=== PATIENT | male | born 1950 | race Two or more races ===

== ENCOUNTER 2023-08-15 20:15 | Emergency (ER) | payer OTHER ==
[~2023-08-15] VITALS: Ht 167.6 cm; Wt 68.0 kg
[2023-08-15 20:39] VITALS: O2SAT 92
[2023-08-15] MEDS: SODIUM CHLORIDE 0.9% 1,000 ML IV ONE (20:59)
[2023-08-15 21:08] LABS: Hematocrit 35.7 % (41.0-53.0); Hemoglobin 12.1 g/dL (13.5-17.5); Mean Corpuscular Hemoglobin 34.8 pg (28.0-32.0); Mean Corpuscular Hgb Conc. 33.8 g/dL (32.0-36.0); Mean Corpuscular Volume 102.8 fL (80.0-100.0); Red Blood Cells 3.47 10^6/uL (4.5-5.90); Red Cell Distribution Width 13.5 % (11.8-14.3); White Blood Cell 24.1 10^3/uL (4.4-10.8)
[2023-08-15 21:10] LABS: Basophils % (manual) 0 (0.0-2.0); Blast Cells 0; Eosinophils % (manual) 0 (0-7); Metamyelocytes % 0; Myelocytes % 0; Promyelocytes % 0; Reactive Lymphocytes 0
[2023-08-15 21:14] LABS: Alanine Aminotransferase 25 U/L (7-40); Albumin 2.6 g/dL (3.2-4.8); Alkaline Phosphatase 94 U/L (46-116); Anion Gap 11 (5-15); Aspartate Aminotransferase 63 U/L (13-40); BUN/Creatinine Ratio 18.1 (10.0-20.0); Bilirubin, Total 2.5 mg/dL (0.2-1.0); Blood Urea Nitrogen 33 mg/dL (9-23); Calcium 8.8 mg/dL (8.5-10.1); Carbon Dioxide 21 mmol/L (20-30); Chloride 97 mmol/L (98-107); Glucose 123 mg/dL (74-106); Potassium 3.2 mmol/L (3.5-5.1); Sodium 129 mmol/L (136-145); Total Protein 5.4 g/dL (5.7-8.2)
[2023-08-15 21:55] LABS: Band Neutrophils % (manual) 12; Lymphocytes % (manual) 1 (10.0-50.0); Monocytes % (manual) 4 (0-12); Platelet Estimate Decreased
[2023-08-15 22:39] LABS: Lactic Acid w/Reflex 2.4 mmol/L (0.4-2.0)
[2023-08-15 22:43] LABS: INR 1.47 (0.9-1.15); Prothrombin Time 15.1 sec (9.3-11.8)
[2023-08-16] MEDS: cefTRIAXone 1GM/50ML D5W 50 ML IV ONE
[2023-08-16] MEDS: AZITHROMYCIN 250 MG TAB PO ONE
[2023-08-16 06:35] LABS: Urine Bacteria None Seen /hpf (None Seen)
[2023-08-16 06:56] LABS: Urine Blood 2+ /uL (Negative); Urine Clarity Clear (Clear); Urine Color Yellow (Yellow); Urine Protein, UAD TRACE (Negative); Urine Urobilinogen Normal (Negative); Urine WBC 3 /hpf (0 - 3); Urine pH 5.5 (5.0-9.0)
[2023-08-16 07:07] LABS: Amphetamine Screen, Urine Neg (NEGATIVE); Benzodiazephine Screen, Urine Neg (NEGATIVE)
[2023-08-16 07:08] LABS: Barbiturate Scree,Urine Neg (NEGATIVE); Cannabinoid Screen, Urine Pos (NEGATIVE); Cocaine Screen, Urine Neg (NEGATIVE); Opiate Scree,Urine Neg (NEGATIVE); Phencyclidine Screen, Urine Neg (NEGATIVE)
[2023-08-16 07:45] VITALS: PULSE 71; RESP 15; O2SAT 96
[2023-08-16 11:04] VITALS: BP 103/71; PULSE 68; RESP 17; TEMP 97.6; O2SAT 94
== END 2023-08-16 11:10 | disposition short-term general hospital (02) ==
LOC: EDBD 20:15 → ER 20:15
DX: I95.9 Hypotension, unspecified (principal); I25.9 Chronic ischemic heart disease, unspecified; R41.82 Altered mental status, unspecified; R79.89 Other specified abnormal findings of blood chemistry; N28.9 Disorder of kidney and ureter, unspecified; D72.829 Elevated white blood cell count, unspecified; K76.9 Liver disease, unspecified; E88.09 Other disorders of plasma-protein metabolism, not elsewhere classified; D69.6 Thrombocytopenia, unspecified; Z79.899 Other long term (current) drug therapy
CPT/HCPCS: 36415; 70450; 71045; 80053; 80307; 81001; 82140; 83605; 84484; 85007; 85027; 85610; 87040; 87077; 87186; 93005; 96361; 96365; 99285; J0696; J7030

== ENCOUNTER 2024-05-26 12:12 | Emergency (ER) | payer OTHER ==
[~2024-05-26] VITALS: Ht 167.6 cm; Wt 59.0 kg
--- NOTE | 2024-05-26 12:28 | ED.PDOC ---
HPI (NEURO) HPI Comments 73y M who presents to the ED via EMS for chief complaint of seizure. Per EMS, pt family states pt was in wheelchair and state he had tonic clonic seizure for approx 1 minute witnessed by family. Pt was laid on the ground and EMS was called to the scene. Per EMS, upon arrival pt in post-ictal and is [id number] to name only. Pt has no oral trauma or incontinence noted. Pt family states pt does have history of alcoholism and states pt did drink unknown amount last night. Pt in the ED, otherwise noted to be in post-ictal state and is not willing to answer any questions. Pt otherwise denies any other symptoms at this time. Chief Complaint: Seizure Time Seen by MD: 12:25 Reviewed Notes: Nurses Notes, Government Auditor Notes Information Source: Patient, Emergency Med Personnel Mode of Arrival: EMS Brought in by: EMS Severity: Moderate Dizziness/Weakness Severity: Does not affect activitie Headache Severity: None Timing: Minutes, Hours Duration: Since onset Prehospital treatment: None Onset: At rest Circumstances: Spontaneous Symptoms: Weakness Before: Normal During: Awake After: Confusion Modifying factors: Nothing Associated Signs and Symptoms: None Past Medical History PAST MEDICAL HISTORY: HTN, Liver, Thyroid Surgical History: Unobtainable Family History Family History: Unknown Social History Smoker: Non-Smoker Alcohol: Denies ETOH Use Drugs: Denies Drug Use Lives In: Home Constitutional: denies: chills, diaphoresis, fatigue, fever, malaise, sweats, weakness, others EENTM: denies: blurred vision, double vision, ear bleeding, ear discharge, ear drainage, ear pain, ear ringing, eye pain, eye redness, hearing loss, mouth pain, mouth swelling, nasal discharge, nose bleeding, nose congestion, nose pain, photophobia, tearing, throat pain, throat swelling, voice changes, others Respiratory: denies: cough, hemoptysis, orthopnea, SOB at rest, shortness of breath, SOB with excertion, stridor, wheezing, others Cardiovascular: denies: chest pain, dizzy spells, diaphoresis, Dyspnea on exertion, edema, irregular heart beat, left arm pain, lightheadedness, palpitations, PND, syncope, others Gastrointestinal: denies: abdomen distended, abdominal pain, blood streaked bowels, constipated, diarrhea, dysphagia, difficulty swallowing, hematemesis, melena, nausea, poor appetite, poor fluid intake, rectal bleeding, rectal pain, vomiting, others Genitourinary: denies: burning, dysuria, flank pain, frequency, hematuria, incontinence, penile discharge, penile sore, pain, testicle pain, testicle swelling, urgency, others Neurological: reports: seizure; denies: dizziness, fainting, headache, left sided numbness, left sided weakness, numbness, paresthesia, pre-existing deficit, right sided numbness, right sided weakness, speech problems, tingling, tremors, weakness, others Musculoskeletal: denies: back pain, gout, joint pain, joint swelling, muscle pain, muscle stiffness, neck pain, others Integumetry: denies: bruises, change in color, change in hair/nails, dryness, laceration, lesions, lumps, rash, wounds, others Allergic/Immunocompromised: denies: Difficulty Healing, Frequent Infections, Hives, Itching, others Hematologic/Lymphatic: denies: anemia, blood clots, easy bleeding, easy bruising, swollen glands, others Endocrine: denies: excessive hunger, excessive sweating, excessive thirst, excessive urination, flushing, intolerance to cold, intolerance to heat, unexplained weight gain, unexplained weight loss, others Psychiatric: denies: anxiety, bipolar disorder, depression, hopeless, panic disorder, schizophrenia, sleepless, suicidal, others All Other Systems: Reviewed and Negative Physical Exam General Appearance: No Apparent Distress HEENT: Normal ENT Inspection, Pharynx Normal, TMs Normal Neck: Full Range of Motion, Non-Tender, Normal, Normal Inspection Respiratory: Chest Non-Tender, Lungs Clear, No Accessory Muscle Use, No Respiratory Distress, Normal Breath Sounds Cardiovascular: No Edema, No JVD, No Murmur, No Gallop, Normal Peripheral Pulses, Regular Rate/Rhythm Breast Exam: Deferred Gastrointestinal: No Organomegaly, Non Tender, No Pulsatile Mass, Normal Bowel Sounds, Soft Genitalia: Deferred Pelvic: Deferred Rectal: Deferred Extremities: No calf tenderness, Normal capillary refill, Normal inspection, Normal range of motion, Non-tender, No pedal edema Musculoskeletal : Apperance: Normal Neurologic: Alert, commercial loan manager II-XII nml as Tested, Motor Weakness, Normal Affect, No Sensory Deficits, Other (The patient was somewhat postictal) Cerebellar Function: Normal Reflexes: Normal Skin: Dry, Normal Color, Warm Lymphatic: No Adenopathy EKG EKG : Pulse Rate (adult): 65 [place]: Normal Cardiac Rhythm: NSR Block: None Hypertrophy: None ST: Normal Comments low voltage Was a procedure done? Was a procedure done?: No Differential Diagnosis (SZ) Seizure: Psychogenic Seizure, Alcohol Withdrawl, Drug Ingestion, Hypocalcemia, Hypoglycemia, Hyponatremia, Hypoxemia, Idiopathic, Encephalopathy, Other X-Ray, Labs, Meds, VS Vital Signs Date Time Temp Pulse Resp B/P (MAP) Pulse Ox O2 Delivery O2 Flow Rate FiO2 05/26/24 13:10 65 05/26/24 12:51 65 05/26/24 12:40 67 18 93 Room Air* 0 21 05/26/24 12:34 98.0 67 18 131/83 (99) 97 98.0 05/26/24 12:22 98.0 72 16 129/76 (93) 95 Lab Test 05/26/24 14:14 05/26/24 12:38 Range/Units Urine Opiates Screen Neg NEGATIVE Urine Fentanyl Screen Neg NEGATIVE Urine Barbiturates Screen Neg NEGATIVE Urine Phencyclidine Screen Neg NEGATIVE Urine Amphetamines Screen Neg NEGATIVE Urine Benzodiazepines Screen Neg NEGATIVE Urine Cocaine Screen Neg NEGATIVE Urine Cannabinoids Screen Pos NEGATIVE White Blood Count 5.6 4.4-10.8 10^3/uL Red Blood Count 3.90 L 4.5-5.90 10^6/uL Hemoglobin 13.5 13.5-17.5 g/dL Hematocrit 40.7 L 41.0-53.0 % Mean Corpuscular Volume 104.3 H 80.0-100.0 fL Mean Corpuscular Hemoglobin 34.5 H 28.0-32.0 pg Mean Corpuscular Hemoglobin Concent 33.1 32.0-36.0 g/dL Red Cell Distribution Width 16.0 H 11.8-14.3 % Platelet Count 65 L 140-450 10^3/uL Mean Platelet Volume 7.4 6.9-10.8 fL Neutrophils (%) (Auto) 67.4 37.0-80.0 % Lymphocytes (%) (Auto) 22.5 10.0-50.0 % Monocytes (%) (Auto) 9.0 0.0-12.0 % Eosinophils (%) (Auto) 0.7 0.0-7.0 % Basophils (%) (Auto) 0.4 0.0-2.0 % Neutrophils # (Auto) 3.7 1.6-8.6 10 ^3/uL Lymphocytes # (Auto) 1.2 0.4-5.4 10 ^3/uL Monocytes # (Auto) 0.5 0-1.3 10 ^3/uL Eosinophils # (Auto) 0 0-0.8 10 ^3/uL Basophils # (Auto) 0 0-0.2 10 ^3/uL Nucleated Red Blood Cells 0.2 % Sodium Level 134 L 136-145 mmol/L Potassium Level 3.1 L 3.5-5.1 mmol/L Chloride Level 99 98-107 mmol/L Carbon Dioxide Level 26 20-31 mmol/L Anion Gap 9 5-15 Blood Urea Nitrogen 6 L 9-23 mg/dL Creatinine 1.10 0.700-1.30 mg/dL Glomerular Filtration Rate Calc 71 >90 mL/min BUN/Creatinine Ratio 5.5 L 10.0-20.0 Serum Glucose 133 H 74-106 mg/dL Calcium Level 10.0 8.7-10.4 mg/dL Plasma/Serum Blood Alcohol 3.2 <10 mg/dL EXAM: CT HEAD WITHOUT CONTRAST IMPRESSION: 1. No acute intracranial process. CT scan of the head is negative The CBC and chemistry panel are within normal limits The urine tox is positive for marijuana The patient was also been drinking alcohol and most likely is withdrawing The patient was now back to baseline The patient's son and are here and they confirmed that he was at baseline The patient will be discharged and will follow up with the primary care doctor The patient understands and agrees with the management Images Reviewed?: Images reviewed and evaluated by me Time of 1ST Reevaluation: 13:25 Reevaluation 1ST: Unchanged Patient Education/Counseling: Diagnosis, Treatment, Prognosis, Need For Follow Up Family Education/Counseling: Diagnosis, Treatment, Prognosis, Need For Follow Up Additional Information - I reviewed the following notes from patient's past medical encounters: - The following tests were ordered, and results were reviewed by me: (Labs, X- Ray, EKG): bmp, ct head w/o contrast, drug screen, blood alcohol, cbc, - Additional information was gathered from interviewing the following independent Historian: (Family, Other Providers, EMT): EMS - I reviewed and agreed with the following test results read by other provider: radiologist - I discussed treatments and results with medical personnel and: (consultants, family): none Departure 1 Departure Time of Disposition: 15:10 Impression: Primary Impression: Alcohol withdrawal seizure Qualified Codes: F10.930 - Alcohol use, unspecified with withdrawal, u ncomplicated; R56.9 - Unspecified convulsions Disposition: 01 HOME / SELF CARE / HOMELESS Condition: Fair Discharged With: Self, Relative (Mother) Critical Care Note Critical Care Time?: No Stability Stability form required: No Heart Score Heart Score: Heart Score Response (Comments) Value History N/A 0 EKG N/A 0 Age N/A 0 Risk Factors N/A 0 Troponin N/A 0 Total 0 I personally scribed for JEANETTE MEJIA MD ([email or web address]) on 05/26/24 at 12:28. Electronically submitted by Jone Argueta ([email or web address] I personally scribed for JEANETTE MEJIA MD ([email or web address]) on 05/26/24 at 13:10. Electronically submitted by Jone Argueta ([facility] I personally scribed for JEANETTE MEJIA MD ([email or web address]) on 05/26/24 at 13:34. Electronically submitted by Jone Argueta ([facility] JEANETTE MEJIA MD May 26, 2024 12:28
[2024-05-26 12:34] VITALS: TEMP 98
[2024-05-26 12:40] VITALS: PULSE 67; RESP 18; O2SAT 93
[2024-05-26 13:00] VITALS: BP 126/82; RESP 15; O2SAT 94
[2024-05-26 13:10] VITALS: PULSE 65
--- NOTE | 2024-05-26 13:16 | DVH ---
EXAM: CT HEAD WITHOUT CONTRAST HISTORY: seizure COMPARISON: CT HEAD WITHOUT CONTRAST on DOS: 08/16/23, CT HEAD WITHOUT CONTRAST on DOS: 08/15/23 TECHNIQUE: Axial images of the head were obtained and reformatted in coronal and sagittal planes. All CT scans at this medical facility are performed using dose modulation techniques as appropriate t o a performed exam including the following: Automated exposure control was utilized; adjustment of th e MA and/or KV according to patient size; and use of iterative reconstruction technique. CT Dose: CTDI volume is 54.34 mGy. Dose-length product is 962.34 mGy*cm FINDINGS: There is moderate generalized parenchymal volume loss. There is no evidence of acute intracranial hem orrhage, mass, mass effect midline shift. There is no hydrocephalus or extra-axial fluid collection. Taylor-white matter differentiation appears maintained. There is mucosal thickening with hyperdense inspissated secretions in the left maxillary sinus. The mastoid air cells are clear. The calvarium is intact. IMPRESSION: 1. No acute intracranial process. HS:Y
--- NOTE | 2024-05-26 13:17 | ECG ---
[facility] Test Date: 2024-05-26 Test Time: 12:51:33 Pat Name: LEN LIN Department: ER Room: Gender: M Printer Technician: GP : 1950 Requested By: JEANETTE MEJIA Order Number: [id number] Reading MD: Kevin Sutherland Measurements Intervals Naoma Rate: 65 P: 32 KS: 167 QRS: 42 QRSD: 106 T: 38 QT: 479 QTc: 499 Interpretive Statements Sinus rhythm Low voltage, precordial leads Borderline prolonged QT interval Baseline wander in lead(s) II,III,aVF Electronically Signed On 05-27-2024 12:00:13 PST by Kevin Sutherland Please click the below link to view image of tracing.
[2024-05-26 13:18] LABS: Basophils # (auto) 0 10 ^3/uL (0-0.2); Basophils % (auto) 0.4 % (0.0-2.0); Eosinophils # (auto) 0 10 ^3/uL (0-0.8); Eosinophils % (auto) 0.7 % (0.0-7.0); Hematocrit 40.7 % (41.0-53.0); Hemoglobin 13.5 g/dL (13.5-17.5); Lymphocytes # (auto) 1.2 10 ^3/uL (0.4-5.4); Lymphocytes % (auto) 22.5 % (10.0-50.0); Mean Corpuscular Hemoglobin 34.5 pg (28.0-32.0); Mean Corpuscular Hgb Conc. 33.1 g/dL (32.0-36.0); Mean Corpuscular Volume 104.3 fL (80.0-100.0); Monocytes # (auto) 0.5 10 ^3/uL (0-1.3); Neutrophils # (auto) 3.7 10 ^3/uL (1.6-8.6); Neutrophils % (auto) 67.4 % (37.0-80.0); Nucleated Red Blood Cells % 0.2 %; Platelet Count (auto) 65 10^3/uL (140-450); White Blood Cell 5.6 10^3/uL (4.4-10.8)
[2024-05-26 13:43] LABS: Chloride 99 mmol/L (98-107)
[2024-05-26 13:44] LABS: Anion Gap 9 (5-15); Carbon Dioxide 26 mmol/L (20-31)
[2024-05-26 13:49] LABS: BUN/Creatinine Ratio 5.5 (10.0-20.0); Blood Alcohol 3.2 mg/dL (<10)
[2024-05-26 13:50] LABS: Blood Urea Nitrogen 6 mg/dL (9-23); Glucose 133 mg/dL (74-106); Potassium 3.1 mmol/L (3.5-5.1); Sodium 134 mmol/L (136-145)
[2024-05-26 14:40] LABS: Barbiturate Scree,Urine Neg (NEGATIVE); Opiate Scree,Urine Neg (NEGATIVE)
[2024-05-26 14:41] LABS: Amphetamine Screen, Urine Neg (NEGATIVE); Benzodiazephine Screen, Urine Neg (NEGATIVE); Cannabinoid Screen, Urine Pos (NEGATIVE); Cocaine Screen, Urine Neg (NEGATIVE); Phencyclidine Screen, Urine Neg (NEGATIVE)
== END 2024-05-26 15:18 | disposition home or self-care (01) ==
LOC: EDBD 12:12 → ER 12:19
DX: R56.9 Unspecified convulsions (principal); F10.239 Alcohol dependence with withdrawal, unspecified; Y90.9 Presence of alcohol in blood, level not specified; I10 Essential (primary) hypertension; E07.9 Disorder of thyroid, unspecified
CPT/HCPCS: 36415; 70450; 80048; 80307; 80320; 85025; 93005

== ENCOUNTER 2024-05-26 19:38 | Inpatient (IN) | payer OTHER ==
[~2024-05-26] VITALS: Ht 172.7 cm; Wt 61.5 kg
--- NOTE | 2024-05-26 19:46 | ED.PDOC ---
HPI (NEURO) HPI Comments 73y M who presents to the ED via EMS for chief complaint of seizure. Pt was at [facility] earlier this AM for tonic clonic seizure like activity witnessed by family while sitting on wheelchair and EMS was called to the scene. Pt was discharged after all vitals came negative and EMS states pt had another seizure similar like earlier this AM, tonic clonic seizure lasting approx 1 minute. Pt in the ED, in post-ictal state with no associated oral trauma or incontinence noted. Time Seen by MD: 19:44 Reviewed Notes: Manager Books Notes Information Source: Emergency Med Personnel Mode of Arrival: EMS Brought in by: EMS Severity: Moderate Dizziness/Weakness Severity: Does not affect activitie Headache Severity: Moderate Timing: Minutes, Hours Duration: Since onset Prehospital treatment: None Seizure Quality: Tonic-clonic Seizure Location: Generalized Onset: At rest Circumstances: Spontaneous Symptoms: None Before: Normal During: Awake After: Confusion History of: Hypertension Modifying factors: Nothing Associated Signs and Symptoms: None Past Medical History PAST MEDICAL HISTORY: HTN, Liver, Thyroid Surgical History: Unobtainable Family History Family History: Unknown Social History Smoker: Non-Smoker Alcohol: Denies ETOH Use Drugs: Denies Drug Use Lives In: Home Constitutional: denies: chills, diaphoresis, fatigue, fever, malaise, sweats, weakness, others EENTM: denies: blurred vision, double vision, ear bleeding, ear discharge, ear drainage, ear pain, ear ringing, eye pain, eye redness, hearing loss, mouth pain, mouth swelling, nasal discharge, nose bleeding, nose congestion, nose pain, photophobia, tearing, throat pain, throat swelling, voice changes, others Respiratory: denies: cough, hemoptysis, orthopnea, SOB at rest, shortness of breath, SOB with excertion, stridor, wheezing, others Cardiovascular: denies: chest pain, dizzy spells, diaphoresis, Dyspnea on exertion, edema, irregular heart beat, left arm pain, lightheadedness, palpitations, PND, syncope, others Gastrointestinal: denies: abdomen distended, abdominal pain, blood streaked bowels, constipated, diarrhea, dysphagia, difficulty swallowing, hematemesis, melena, nausea, poor appetite, poor fluid intake, rectal bleeding, rectal pain, vomiting, others Genitourinary: denies: burning, dysuria, flank pain, frequency, hematuria, incontinence, penile discharge, penile sore, pain, testicle pain, testicle swelling, urgency, others Neurological: reports: seizure; denies: dizziness, fainting, headache, left sided numbness, left sided weakness, numbness, paresthesia, pre-existing deficit, right sided numbness, right sided weakness, speech problems, tingling, tremors, weakness, others Musculoskeletal: denies: back pain, gout, joint pain, joint swelling, muscle pain, muscle stiffness, neck pain, others Integumetry: denies: bruises, change in color, change in hair/nails, dryness, laceration, lesions, lumps, rash, wounds, others Allergic/Immunocompromised: denies: Difficulty Healing, Frequent Infections, Hives, Itching, others Hematologic/Lymphatic: denies: anemia, blood clots, easy bleeding, easy bruising, swollen glands, others Endocrine: denies: excessive hunger, excessive sweating, excessive thirst, excessive urination, flushing, intolerance to cold, intolerance to heat, unexplained weight gain, unexplained weight loss, others Psychiatric: denies: anxiety, bipolar disorder, depression, hopeless, panic disorder, schizophrenia, sleepless, suicidal, others All Other Systems: Reviewed and Negative Physical Exam General Appearance: Moderate Distress HEENT: Normal ENT Inspection, Pharynx Normal, TMs Normal Neck: Full Range of Motion, Non-Tender, Normal, Normal Inspection Respiratory: Chest Non-Tender, Lungs Clear, No Accessory Muscle Use, No Respiratory Distress, Normal Breath Sounds Cardiovascular: No Edema, No JVD, No Murmur, No Gallop, Normal Peripheral Pulses, Regular Rate/Rhythm Breast Exam: Deferred Gastrointestinal: No Organomegaly, Non Tender, No Pulsatile Mass, Normal Bowel Sounds, Soft Genitalia: Deferred Pelvic: Deferred Rectal: Deferred Extremities: No calf tenderness, Normal capillary refill, Normal inspection, Normal range of motion, Non-tender, No pedal edema Musculoskeletal : Apperance: Normal Neurologic: Alert, environmental sustainability manager II-XII nml as Tested, Motor Weakness, No Motor Deficits, No Sensory Deficits, Other (The patient was postictal) Cerebellar Function: Normal Reflexes: Normal Skin: Dry, Normal Color, Warm Lymphatic: No Adenopathy Was a procedure done? Was a procedure done?: No Differential Diagnosis (SZ) Seizure: Psychogenic Seizure, Alcohol Withdrawl, Anticonvulsant Withdrawl, Closed Head Injury, CVA/TIA, Drug Ingestion, Hypocalcemia, Hypoglycemia, Idiopathic X-Ray, Labs, Meds, VS At this time, the patient had an IV Hep-Lock placed Seizure precautions were placed At this time the patient will be admitted to the hospitalist A neurology consult will be obtained. At this time, the patient will be admitted Time of 1ST Reevaluation: 18:15 Reevaluation 1ST: Unchanged Patient Education/Counseling: Diagnosis, Treatment, Prognosis Family Education/Counseling: No Family Present Departure 1 Departure Time of Disposition: 20:06 Impression: Primary Impression: Alcohol withdrawal seizure Qualified Codes: F10.930 - Alcohol use, unspecified with withdrawal, uncomplicated; R56.9 - Unspecified convulsions Disposition: ADMITTED INPATIENT Admit to: Tele Condition: Fair Critical Care Note Critical Care Time?: No Stability Stability form required: Yes Unstable for transfer: Telemetry monitoring (Telemetry monitoring required), ED Physician Assesment (Clinical assesment) Heart Score Heart Score: Heart Score Response (Comments) Value History N/A 0 EKG N/A 0 Age N/A 0 Risk Factors N/A 0 Troponin N/A 0 Total 0 I personally scribed for JEANETTE MEJIA MD ([email or web address]) on 05/26/24 at 19:46. Electronically submitted by Jone Argueta ([email or web address]). JEANETTE MEJIA MD May 26, 2024 19:46
[2024-05-26] MEDS: LORazepam 2MG/ML-1ML VIAL IV ONE (21:06)
[2024-05-26] MEDS ORDERED: MORPHINE SULFATE INJ 2 MG/ml SYRG IV PRN ×2 (21:15)
[2024-05-26] MEDS ORDERED: NITROGLYCERIN 0.4 MG SL TAB SL PRN (21:15)
[2024-05-26] MEDS ORDERED: LORazepam 2MG/ML-1ML VIAL IV PRN (21:15)
[2024-05-26 21:49] LABS: Basophils # (auto) 0 10 ^3/uL (0-0.2); Basophils % (auto) 0.2 % (0.0-2.0); Eosinophils # (auto) 0 10 ^3/uL (0-0.8); Hematocrit 38.7 % (41.0-53.0); Hemoglobin 13.1 g/dL (13.5-17.5); Lymphocytes # (auto) 0.9 10 ^3/uL (0.4-5.4); Lymphocytes % (auto) 5.7 % (10.0-50.0); Mean Corpuscular Hemoglobin 35.7 pg (28.0-32.0); Mean Corpuscular Hgb Conc. 33.9 g/dL (32.0-36.0); Mean Corpuscular Volume 105.4 fL (80.0-100.0); Monocytes # (auto) 0.6 10 ^3/uL (0-1.3); Neutrophils # (auto) 13.8 10 ^3/uL (1.6-8.6); Neutrophils % (auto) 90.1 % (37.0-80.0); Red Blood Cells 3.67 10^6/uL (4.5-5.90); Red Cell Distribution Width 16.2 % (11.8-14.3); White Blood Cell 15.4 10^3/uL (4.4-10.8)
[2024-05-26 22:03] LABS: Alanine Aminotransferase 16 U/L (7-40); Albumin 3.6 g/dL (3.2-4.8); Anion Gap 20 (5-15); BUN/Creatinine Ratio 8.5 (10.0-20.0); Blood Alcohol 3.2 mg/dL (<10); Blood Urea Nitrogen 11 mg/dL (9-23); Calcium 10.1 mg/dL (8.7-10.4); Chloride 98 mmol/L (98-107); Magnesium 1.8 mg/dL (1.6-2.6); Potassium 3.7 mmol/L (3.5-5.1)
[2024-05-26 22:04] LABS: Total Protein 6.9 g/dL (5.7-8.2)
[2024-05-26 22:06] LABS: Alkaline Phosphatase 204 U/L (46-116); Aspartate Aminotransferase 47 U/L (13-40); Bilirubin, Total 2.9 mg/dL (0.2-1.0); Carbon Dioxide 16 mmol/L (20-31); Glucose 166 mg/dL (74-106); Platelet Count (auto) 90 10^3/uL (140-450); Sodium 134 mmol/L (136-145)
--- NOTE | 2024-05-26 22:11 | DVHHPRES ---
History of Present Illness Resident Creating Document: DEVANTE WESLEY RESIDENT History of Present Illness LEN LIN is a 73-year-old male with a PMH of HTN, liver disease, thyroid disease presented to the ED via EMS with a chief complaints of seizure. Today morning patient visited ED for seizure activity witnessed by the family, later discharged again patient develops seizure-like episodes which last for 1 minute, again visited to ED. Patient is poor historian, altered. Unable to obtain complete history. Reports from ED records saying family mentioned that he drinks alcohol and takes marijuana every day and last drink was couple of days back, no history of seizure disorder. Unable to contact family due to lack of contact information. PMH: HTN, liver disease, thyroid disease PSH: Unable to obtain Family history: Unable do obtain Social history: Unable to obtain Allergies: Unable to obtain Home medications: Unable to obtain Review of Systems Review of Systems Patient seen and examined at the bedside. Unable to obtain ROS due to patient's clinical status. Patient is altered, unable to answer the questions. Head CT showed no acute changes but CXR showing findings suggestive of atypical infection, given 1 dose of Rocephin and Zithromax. Allergies: Coded Allergies: No Known Drug Allergy (Verified Allergy, Unknown, 05/26/24) Medications Current Medications Medications Dose Ordered Sig/Gita Route Start Time Stop Time Status Last Admin Dose Admin Sodium Chloride 1,000 ml @ 60 mls/hr [id number] IV 05/26/24 21:15 Enoxaparin Sodium 40 mg DAILY SC 05/27/24 10:00 UNV Acetaminophen 650 mg Q6HP PRN PO 05/26/24 21:15 Morphine Sulfate 2 mg Q4HPRN PRN IV 05/26/24 21:15 Nitroglycerin 0.4 mg Q5MINP PRN SL 05/26/24 21:15 Morphine Sulfate 2 mg Q30M PRN IV 05/26/24 21:15 Lorazepam 1 mg Q5MINP PRN IV 05/26/24 21:15 Exam Vital Signs Vital Signs Date Time Temp Pulse Resp B/P (MAP) Pulse Ox O2 Delivery O2 Flow Rate FiO2 05/26/24 19:49 98.7 88 18 128/67 (87) 98 Exam Pt is lying on bed, unable to do due to patient clinical status General Appearance: Altered, poorly responsive, moderately distress HEENT: Atraumatic, Mucous membranes dry Respiratory: Clear to auscultation, Normal air movement, Cardiovascular: Regular rate, Normal S1, Normal S2, Abdominal: Active bowel sounds, Soft, no tenderness Extremities: No edema, Normal pulses, No tenderness/swelling Skin: No Significant rash, except past surgical scars Neuro: Poorly responsive, altered Nurse was there as sharperone during examination Labs/Xrays Labs Test 05/26/24 21:24 Range/Units White Blood Count 15.4 #H 4.4-10.8 10^3/uL Red Blood Count 3.67 L 4.5-5.90 10^6/uL Hemoglobin 13.1 L 13.5-17.5 g/dL Hematocrit 38.7 L 41.0-53.0 % Mean Corpuscular Volume 105.4 H 80.0-100.0 fL Mean Corpuscular Hemoglobin 35.7 H 28.0-32.0 pg Mean Corpuscular Hemoglobin Concent 33.9 32.0-36.0 g/dL Red Cell Distribution Width 16.2 H 11.8-14.3 % Platelet Count 90 L 140-450 10^3/uL Mean Platelet Volume 6.8 L 6.9-10.8 fL Neutrophils (%) (Auto) 90.1 H 37.0-80.0 % Lymphocytes (%) (Auto) 5.7 L 10.0-50.0 % Monocytes (%) (Auto) 4.0 0.0-12.0 % Eosinophils (%) (Auto) 0.0 0.0-7.0 % Basophils (%) (Auto) 0.2 0.0-2.0 % Neutrophils # (Auto) 13.8 H 1.6-8.6 10 ^3/uL Lymphocytes # (Auto) 0.9 0.4-5.4 10 ^3/uL Monocytes # (Auto) 0.6 0-1.3 10 ^3/uL Eosinophils # (Auto) 0 0-0.8 10 ^3/uL Basophils # (Auto) 0 0-0.2 10 ^3/uL Nucleated Red Blood Cells 0.0 % Sodium Level 134 L 136-145 mmol/L Potassium Level 3.7 3.5-5.1 mmol/L Chloride Level 98 98-107 mmol/L Carbon Dioxide Level 16 #L 20-31 mmol/L Anion Gap 20 H 5-15 Blood Urea Nitrogen 11 9-23 mg/dL Creatinine 1.30 0.700-1.30 mg/dL Glomerular Filtration Rate Calc 58 >90 mL/min BUN/Creatinine Ratio 8.5 L 10.0-20.0 Serum Glucose 166 H 74-106 mg/dL Calcium Level 10.1 8.7-10.4 mg/dL Magnesium Level 1.8 1.6-2.6 mg/dL Total Bilirubin 2.9 H 0.2-1.0 mg/dL Aspartate Amino Transferase (AST) 47 H 13-40 U/L Alanine Aminotransferase (ALT) 16 7-40 U/L Alkaline Phosphatase 204 H 46-116 U/L Ammonia 65 H 11-32 umol/L Troponin I High Sensitivity 8 </=54 ng/L Total Protein 6.9 5.7-8.2 g/dL Albumin 3.6 3.2-4.8 g/dL Plasma/Serum Blood Alcohol 3.2 <10 mg/dL Assessment/Plan Assessment/Plan # Acute metabolic/toxic encephalopathy likely due to below # Seizure likely from alcohol withdrawal # Generalized tonic-clonic seizures -seizure precautions -Ativan p.r.n. -monitor continuously -consider neurology evaluation if needed -CT head showed no acute changes -started Keppra 500 b.i.d. -neurology on board -started thiamine and folic acid # SIRS VS sepsis -monitor lab -ordered pancultures -intially on Rocephin and Zithromax then switched to Zosyn # ? Aspiration pneumonia -pending CXR -intially on Rocephin and Zithromax then switched to Zosyn # dehydration -receiving fluids # Anion gap metaboloc acidosis likely due to lactate/seizure -monitor lab # alcohol withdrawal # alcohol dependence disorder # macrocytic anemia -monitor lab for now # thrombocytopenia likely from alcohol -monitor lab # mild transaminitis likely from liver disease -monitor for now Protonix NPO SCDs Unable to discuss goals of care for now but per EMR full code Case discussed with Dr. Elena, nurse Plan discussed with: Other (RN) My Orders Orders - DEVANTE WESLEY RESIDENT Procedure Category Date Status Time Admit ADMIT 05/26/24 Transmitted 21:15 Allergies KISHAN 05/26/24 In Process 21:15 Code Status CODE 05/26/24 Transmitted 21:15 Sodium Chloride 0.9% PHA 05/26/24 In Process 21:15 Enoxaparin Sodium PHA 05/27/24 Pending (Lovenox) 10:00 Complete Blood Count LAB 05/27/24 Verified 04:00 Comprehensive LAB 05/27/24 Verified Metabolic Panel 04:00 Npo (Nothing By DIET 05/27/24 Transmitted Mouth) Diet Breakfast Condition: Stable KISHAN 05/26/24 In Process 21:15 Acetaminophen Tablet PHA 05/26/24 In Process (Tylenol Tablet) 21:15 Morphine Sulfate PHA 05/26/24 In Process Injection 21:15 Nitroglycerin PHA 05/26/24 In Process Sublingual (Ntrostat 21:15 Morphine Sulfate PHA 05/26/24 In Process Injection 21:15 Oxygen By Nasal RT 05/26/24 Transmitted Cannula 21:15 Stat Ekg For Chest KISHAN 05/26/24 In Process Pain 21:15 Notify Md Of Changes KISHAN 05/26/24 In Process From Base 21:15 Meter Record Clerk For KISHAN 05/26/24 In Process 24 Hours 21:15 Emergency Dysrhythmia KISHAN 05/26/24 In Process Protocol 21:15 Rhythm Strips Once KISHAN 05/26/24 In Process Every Shift 21:15 Lorazepam 2mg/Ml Inj PHA 05/26/24 In Process (Ativan Inj) 21:15 Thyroid Stimulating LAB 05/26/24 In Process Hormone 21:19 Rapid Influenza A&B LAB 05/26/24 Logged 21:21 Covid19 Antigen Ina LAB 05/26/24 Logged D-Dimer LAB 05/26/24 In Process 21:23 Azithromycin 500mg/ PHA 05/26/24 In Process 250ml (Zithromax 50 21:30 Seizure Precautions ED NURSING 05/26/24 Transmitted Date of Service: May 26, 2024 Billing Provider: SHANAE ELENA MD Common Visit Codes: [id number] INP/OBS CARE (HIGH) DEVANTE WESLEY RESIDENT May 26, 2024 22:11 SHANAE ELENA MD May 28, 2024 00:34
[2024-05-26 22:38] LABS: Lactic Acid w/Reflex 8.5 mmol/L (0.4-2.0)
[2024-05-27] MEDS: FOLIC ACID 1 MG in D5W 5% 50 ML INJ SCH (00:15)
[2024-05-27] MEDS: LIDOCAINE 1% HCL (LOCAL ANESTH.) INJ 20ML MDV ONE (01:00)
[2024-05-27] MEDS: IOHEXOL 350 MG/ML 100ML IJ ONE (01:07)
--- NOTE | 2024-05-27 01:16 | DVH ---
EXAM: XY CHEST XRAY 1 VIEW CLINICAL HISTORY: poss asp pneumonia TECHNIQUE: Single AP view of the chest WID: COMPARISON: XY CHEST PORTABLE on DOS: 08/15/23 FINDINGS: Lines and tubes: None Chest: The heart size and pulmonary vasculature is within normal limits. Calcified plaque projects over the aortic arch. Blunting of the right costophrenic angle. Hazy opacification of the right lung base. No pneumothorax. The osseous structures are grossly intact. IMPRESSION: Blunting of the right costophrenic angle which could reflect pleural effusions ; hazy opacification o f the right lung base which could reflect layering pleural fluid , atelectasis or pneumonia.
[2024-05-27 01:19] VITALS: RESP 23; O2SAT 95
--- NOTE | 2024-05-27 01:36 | DVH ---
INDICATION: fall EXAM DATE: 05/27/2024 01:06 AM COMPARISON: CT head obtained earlier today TECHNIQUE: CT of the orbits without intravenous contrast. RADIATION DOSE: CTDIvol: 67 mGy, DLP: 810 mGy*cm FINDINGS: The orbits, globes and extraocular muscles appear intact. There is no evidence of acute fracture. Th e visualized brain is unremarkable. The surrounding soft tissues and osseous structures are otherwis e unremarkable. Mucosal thickening of the left maxillary sinus with hyperdense inspissated secretions. Minimal mucos al thickening of the right maxillary sinus. IMPRESSION: 1. CT orbits within normal limits. 2. Left maxillary sinusitis.
--- NOTE | 2024-05-27 01:41 | DVH ---
EXAM: CT HEAD WITHOUT CONTRAST INDICATION: fall TECHNIQUE: CT of the head without intravenous contrast. Radiation Dose : 1. Head: CT Dose: CTDI volume is 56 can not be mGy. Dose-length product is 1108 mGy*cm The dose indicators for CT are the volume Computed Tomography (CT) Dose Index (CTDIvol) and the Dose Length Product (DLP), and are measured in units of mGy and mGy-cm, respectively. These indicators are not patient dose, but values generated from the CT scanner acquisition factors. The report includes radiation exposure data for exposures received during this examination. COMPARISON: CT HEAD WITHOUT CONTRAST on DOS: 05/26/24, CT HEAD WITHOUT CONTRAST on DOS: 08/16/23, CT HEA D WITHOUT CONTRAST on DOS: 08/15/23 FINDINGS: There is no evidence of acute intracranial hemorrhage, extra-axial collection, mass effect, midline s hift, herniation or hydrocephalus. The ventricles, sulci and cisterns are age appropriate. The adamson-white differentiation is intact. Patchy periventricular and subcortical white matter hypoattenuation is nonspecific but may be related to small vessel ischemic disease. Mucosal thickening of the left maxillary sinus. The surrounding soft tissues and osseous structures are unremarkable. IMPRESSION: 1. No acute intracranial abnormality. Radiation optimization: All CT scans at this facility use at least one of these dose optimization kecia hniques: automated exposure control mA and/or kV adjustment per patient size (includes targeted exam s where dose is matched to clinical indication) or iterative reconstruction.
[2024-05-27] MEDS: THIAMINE 100mg/ml INJ (200mg/2ml VIAL) IV SCH (01:54)
[2024-05-27] MEDS: levETIRAcetam 500 mg/100ml 100 ML IV SCH (01:54)
[2024-05-27 02:00] LABS: INR 1.43 (0.9-1.15); Partial Thromboplastin Time 31.5 SEC (24.5-34.5); Prothrombin Time 14.6 sec (9.3-11.8)
[2024-05-27] MEDS: PANTOPRAZOLE 40 MG/10 ML VIAL INJ IV SCH (02:05)
[2024-05-27] MEDS: AZITHROMYCIN 500MG/ 250ML 250 ML IV ONE (02:14)
[2024-05-27] MEDS: cefTRIAXone 1GM/50ML D5W 50 ML IV ONE (02:15)
--- NOTE | 2024-05-27 04:12 | DVH ---
CTA Chest with intravenous contrast INDICATION: elevated d dimer COMPARISON: Chest radiograph dated 05/26/2024. TECHNIQUE: Multidetector spiral CTA of the chest was performed of the chest with 100 cc of omnipaque 300 intravenous contrast. PULMONARY ANGIOGRAPHY PROTOCOL was utilized using a bolus-tracking techniqu e centered on the main pulmonary artery. Coronal and sagittal multiplanar and MIP reformats were perf ormed. Radiation Dose : 1. Chest: CTDI volume is 13.8 mGy. Dose-length product is 503.7 mGy*cm The dose indicators for CT are the volume Computed Tomography (CT) Dose Index (CTDIvol) and the Dose Length Product (DLP), and are measured in units of mGy and mGy-cm, respectively. These indicators are not patient dose, but values generated from the CT scanner acquisition factors. The report includes radiation exposure data for exposures received during this examination. FINDINGS: Pulmonary artery: No pulmonary embolus. Lower neck: Normal thyroid. Lungs: Bibasilar passive atelectasis. Central airways: Patent. Pleura: No pneumothorax. Bilateral pleural effusions right slightly greater than left. Heart/Vascular Structures: The heart is normal in size. Coronary artery calcifications. No pericardi al effusion. There is an aortic valve prosthesis. There is no aortic aneurysm. No dissection. Lymph Nodes: No mediastinal or hilar lymphadenopathy. Esophagus:Grossly unremarkable. Musculoskeletal: Unremarkable. Soft tissues: There is fat stranding in the right axilla. Upper abdomen: High attenuating fluid in the right upper quadrant in between the liver and right kid cosme. Simple appearing free fluid surrounding the spleen. Cholecystectomy. Atherosclerotic disease in the abdominal aorta and the origins of the celiac and superior mesenteric artery. Noncalcified plaque noted in the superior mesenteric artery. IMPRESSION: 1. No evidence of pulmonary embolism. 2. Bilateral pleural effusions, right slightly greater than left. Passive atelectasis in the lower lo bes. 3. Free fluid in the right upper quadrant, which appears to be high attenuating. Hemoperitoneum is no t excluded. CT angiography of the abdomen pelvis with intravenous contrast is recommended. 4. Calcified and noncalcified plaque in the abdominal aorta, celiac and superior mesenteric artery.
[2024-05-27] MEDS: PIPERACILLIN-TAZOB 3.375GM 100 ML IV SCH (04:17)
[2024-05-27] MEDS: SODIUM CHLORIDE 0.9% 1,000 ML IV SCH (04:45)
[2024-05-27 05:40] LABS: Rapid Influenza A Negative (Negative); Rapid Influenza B Negative (Negative)
[2024-05-27 05:41] LABS: COVID19 ANTIGEN SOFIA FIA NEGATIVE (NEGATIVE)
[2024-05-27 06:19] LABS: Alanine Aminotransferase 12 U/L (7-40); Anion Gap 10 (5-15); BUN/Creatinine Ratio 6.6 (10.0-20.0); Blood Urea Nitrogen 9 mg/dL (9-23); Calcium 9.5 mg/dL (8.7-10.4); Chloride 102 mmol/L (98-107); Potassium 3.7 mmol/L (3.5-5.1)
[2024-05-27 06:29] LABS: Albumin 3.1 g/dL (3.2-4.8); Alkaline Phosphatase 153 U/L (46-116); Aspartate Aminotransferase 40 U/L (13-40); Bilirubin, Total 2.2 mg/dL (0.2-1.0); Carbon Dioxide 20 mmol/L (20-31); Glucose 130 mg/dL (74-106); Sodium 132 mmol/L (136-145)
[2024-05-27 08:40] VITALS: PULSE 84; RESP 25; O2SAT 93
--- NOTE | 2024-05-27 09:11 | DVHINCON2 ---
Date of service: May 27, [address] Hein Reason for Consultation Seizure History of Present Illness Mr. Richmond is a 73 years old right-handed gentleman with a history of hypertension, liver failure status post liver transplantation, hypothyroidism, alcohol abuse, the patient was taken to the [facility] on 05/26/2024 with a chief company of seizure activity. At this time, the patient was ar ousable, he can answer questions on waking up, but he is on oriented to person. The history is obtained from his He was history of alcoholism, a result, he had liver seizure and received liver transplantation after he became sober, unfortunately, the patient returned to his heavy daily alcohol consumption about three months ago, he typically drinks 3-4 glasses or half pint on daily basis. In the morning on 05/26/2024, witnessed an event where he became nonresponsive, whole-body shaking followed by whole-body stiffness with mouth biting, he had two more similar events in the evening after EMS came to him. reports no history of seizure or similar problems previously reports the patient did not take his liver transplantation medication on a regular basis Coincidentally after he recovered from pneumonia in 06/2023, he was gait disturbance, and he needs to use wheelchair intermittently. On examination, I noticed diffuse muscle atrophy, with questionable muscle twitching in the left thigh Plasma alcohol, 05/26/2024: 3.2 WBC/HB/PLT/MCV, 05/26/2024: 15.4/13.1/90/105.4 PT/INR/PTT, 05/26/2024: 14.6/1.43/31.5 HCO3, 05/26/2024: 16 BUN/CR, 05/27/2024: 9/1.37 Lactic acid, 05/26/2019 5:8.5, 6.1 TBI/AST/ALT/AP, 05/27/2024: 2.2/40/12/153 NH3, 05/26/2024: 65 TSH, 05/26/2024: 8.02 CT head, : No acute intracranial abnormality CT, orbits, 05/27/2024: 1. CT orbits within normal limits. 2. Left maxillary sinusitis. Past Medical History Hypertension, liver failure, thyroid disorder Past Surgical History Liver transplantation Family History Diabetes, alcoholism Social History He was tobacco smoker. Heavy alcohol consumption, no history of drug abuse Allergies: Coded Allergies: No Known Drug Allergy (Verified Allergy, Unknown, 05/26/24) Current Medications Current Medications Medications (Trade) Dose Ordered Sig/Gita Route PRN Reason Start Time Stop Time Status Last Admin Sodium Chloride 1,000 ml @ 60 mls/hr [id number] IV 05/26/24 21:15 05/27/24 04:45 Enoxaparin Sodium (Lovenox) 40 mg DAILY SC 05/27/24 10:00 05/26/24 22:16 DC Acetaminophen (Tylenol Tablet) 650 mg Q6HP PRN PO PAIN SCALE 1-3 OR TEMP>100.4 05/26/24 21:15 Morphine Sulfate 2 mg Q4HPRN PRN IV SEVERE PAIN (7-10 PAIN SCALE) 05/26/24 21:15 Nitroglycerin (Ntrostat Sublingual) 0.4 mg Q5MINP PRN SL FOR CHEST PAIN 05/26/24 21:15 Morphine Sulfate 2 mg Q30M PRN IV FOR CHEST PAIN 05/26/24 21:15 Lorazepam (Ativan Inj) 1 mg Q5MINP PRN IV SEIZURES 05/26/24 21:15 Pantoprazole Sodium (Protonix) 40 mg DAILY IV 05/26/24 22:30 05/27/24 02:05 Levetiracetam 100 ml @ 400 mls/hr BID IV 05/27/24 00:15 05/27/24 01:54 Thiamine HCl 100 mg DAILY IV 05/27/24 00:15 05/27/24 01:54 Folic Acid 1 mg/ Dextrose 50.2 ml @ 200.8 mls/ hr DAILY INJ 05/27/24 00:15 Piperacillin Sod/ Tazobactam Sod 100 ml @ 25 mls/hr Q6HR IV 05/27/24 00:15 05/27/24 04:17 Review of Systems As above, the other systems are negative Vital Signs Vital Signs Date Time Temp Pulse Resp B/P (MAP) Pulse Ox O2 Delivery O2 Flow Rate FiO2 05/27/24 09:00 85 19 117/80 (92) 05/27/24 05:23 95 05/27/24 01:19 Room Air* 0 21 05/27/24 00:45 98.3 Physical Exam GENERAL EXAM: General: the patient is well developed and nourished. No acute distress. HEENT: Normocephalic, neck is supple, no carotid bruits. No mass. RESPIRATORY: Normal respiratory effort with symmetrical lung expansion. Lungs clear to auscultation. CARDIOVASCULAR: Regular rate and rhythm with no murmurs. S1, S2. ABDOMEN: Soft, nontender, normal bowel sound NEUROLOGICAL: MENTAL STATUS: Awake and alert. Oriented to person, SPEECH, LANGUAGE, HIGHER CORTICAL FUNCTION: no aphasia or dysathria. CRANIAL NERVES: #2: Intact visual garcia to confrontation. The optic discs were sharp #3,4,6: Pupils are equal, round and reactive. EOMs full and conjugate. No nystagmus. #5: Facial sensation intact in all three divisions bilaterally. Mandibular strength intact. #7: Facial muscles symmetrical and strength intact. #8: Hearing grossly normal to voice. #9,10: Uvula and soft palate rise in the midline. Swallow and voice are normal. #11: Trapezius and sternomastoid strength intact bilaterally. #12: Tongue midline. No fasciculations or atrophy. SENSATION: Sensation to touch and pinprick is okay MOTOR: Normal tone in the upper and lower extremity. Diffuse muscle atrophy with questionable twitching in the left side (noticed twice, not reproducible). No abnormal movements or posturing. Muscle strength of the major groups in the upper extremities is 4/5. Muscle strength of the major groups in the lower extremities is 4/5. REFLEXES: Deep tendon reflexes are symmetrical. No pathological reflexes. CEREBELLAR/COORDINATION: Deferred GAIT/STATION: deferred. Labs/Diagnostic Data Labs Test 05/27/24 05:32 05/27/24 05:00 05/26/24 23:13 05/26/24 21:24 Range/Units Sodium Level 132 L 136-145 mmol/L Potassium Level 3.7 3.5-5.1 mmol/L Chloride Level 102 98-107 mmol/L Carbon Dioxide Level 20 20-31 mmol/L Anion Gap 10 5-15 Blood Urea Nitrogen 9 9-23 mg/dL Creatinine 1.37 H 0.700-1.30 mg/dL Glomerular Filtration Rate Calc 54 >90 mL/min BUN/Creatinine Ratio 6.6 L 10.0-20.0 Serum Glucose 130 H 74-106 mg/dL Calcium Level 9.5 8.7-10.4 mg/dL Total Bilirubin 2.2 H 0.2-1.0 mg/dL Aspartate Amino Transferase (AST) 40 13-40 U/L Alanine Aminotransferase (ALT) 12 7-40 U/L Alkaline Phosphatase 153 H 46-116 U/L Total Protein 6.0 5.7-8.2 g/dL Albumin 3.1 L 3.2-4.8 g/dL Influenza Type A Antigen Negative Negative Influenza Type B Antigen Negative Negative SARS-CoV-2 Antigen (Rapid) Negative NEGATIVE Lactic Acid Level 6.1 *H 0.4-2.0 mmol/L White Blood Count 15.4 #H 4.4-10.8 10^3/uL Red Blood Count 3.67 L 4.5-5.90 10^6/uL Hemoglobin 13.1 L 13.5-17.5 g/dL Hematocrit 38.7 L 41.0-53.0 % Mean Corpuscular Volume 105.4 H 80.0-100.0 fL Mean Corpuscular Hemoglobin 35.7 H 28.0-32.0 pg Mean Corpuscular Hemoglobin Concent 33.9 32.0-36.0 g/dL Red Cell Distribution Width 16.2 H 11.8-14.3 % Platelet Count 90 L 140-450 10^3/uL Mean Platelet Volume 6.8 L 6.9-10.8 fL Neutrophils (%) (Auto) 90.1 H 37.0-80.0 % Lymphocytes (%) (Auto) 5.7 L 10.0-50.0 % Monocytes (%) (Auto) 4.0 0.0-12.0 % Eosinophils (%) (Auto) 0.0 0.0-7.0 % Basophils (%) (Auto) 0.2 0.0-2.0 % Neutrophils # (Auto) 13.8 H 1.6-8.6 10 ^3/uL Lymphocytes # (Auto) 0.9 0.4-5.4 10 ^3/uL Monocytes # (Auto) 0.6 0-1.3 10 ^3/uL Eosinophils # (Auto) 0 0-0.8 10 ^3/uL Basophils # (Auto) 0 0-0.2 10 ^3/uL Nucleated Red Blood Cells 0.0 % Prothrombin Time 14.6 H 9.3-11.8 sec Prothrombin Time INR 1.43 H 0.9-1.15 Activated Partial Thromboplast Time 31.5 24.5-34.5 SEC D-Dimer, Quantitative 9.10 H 0.0-0.49 mg/L FEU Hemoglobin A1c 4.3 <5.7 % A1C Magnesium Level 1.8 1.6-2.6 mg/dL Ammonia 65 H 11-32 umol/L Troponin I High Sensitivity 8 </=54 ng/L Thyroid Stimulating Hormone (TSH) 8.02 H 0.55-4.78 uIU/mL Free Thyroxine (T4) Calculated 1.21 0.89-1.76 ng/dL Plasma/Serum Blood Alcohol 3.2 <10 mg/dL Assessment 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
[2024-05-27] MEDS ORDERED: ENOXAPARIN SOD 40 MG/0.4 ML SYRINGE SC SCH (10:00)
[2024-05-27] MEDS ORDERED: LORazepam 2MG/ML-1ML VIAL IV PRN (10:15)
[2024-05-27 10:47] LABS: Basophils # (auto) 0 10 ^3/uL (0-0.2); Eosinophils # (auto) 0 10 ^3/uL (0-0.8); Hemoglobin 11.1 g/dL (13.5-17.5)
[2024-05-27 10:50] LABS: Basophils % (auto) 0.2 % (0.0-2.0); Hematocrit 32.4 % (41.0-53.0); Lymphocytes # (auto) 1.2 10 ^3/uL (0.4-5.4); Lymphocytes % (auto) 13.6 % (10.0-50.0); Mean Corpuscular Hemoglobin 35.4 pg (28.0-32.0); Mean Corpuscular Hgb Conc. 34.2 g/dL (32.0-36.0); Mean Corpuscular Volume 103.5 fL (80.0-100.0); Monocytes % (auto) 11.1 % (0.0-12.0); Neutrophils # (auto) 6.8 10 ^3/uL (1.6-8.6); Neutrophils % (auto) 75.1 % (37.0-80.0); Nucleated Red Blood Cells % 0.1 %; Platelet Count (auto) 56 10^3/uL (140-450); Red Blood Cells 3.13 10^6/uL (4.5-5.90); Red Cell Distribution Width 15.9 % (11.8-14.3); White Blood Cell 9.1 10^3/uL (4.4-10.8)
--- NOTE | 2024-05-27 13:12 | DVH ---
CLINICAL INDICATION: 73 years old, Male; seizure. COMPARISON: CT dated 05/27/2024. TECHNIQUE: Multisequence multiplanar MRI images of the brain were obtained without contrast. FINDINGS: Tiny foci of restricted diffusion in the right cerebellar hemisphere measuring up to 4 mm in greatest dimension, suspected acute or subacute ischemia. No large territory acute infarct. Multif ocal areas of hypointense gradient echo signal seen, including in the left frontal lobe, right tempor al lobe, and bilateral cerebellar hemispheres, likely hemosiderin deposition from previous hemorrhage . No evidence of acute intracranial hemorrhage. Scattered areas of T2/FLAIR hyperintense signal in th e periventricular and subcortical white matter are nonspecific, but most likely sequelae of chronic s mall vessel ischemic disease. No mass effect or midline shift. Atrophic changes with prominence of th e ventricles and widening of the sulci. Brainstem appears unremarkable. Mucosal thickening of the par anasal sinuses. Similar-appearing postoperative changes in both globes with scleral marissa in place bilateral lens prostheses. Orbits are otherwise grossly unremarkable. IMPRESSION: 1. Tiny foci of restricted diffusion in the right cerebellar hemisphere, suspected sequela of acute o r subacute ischemia. No large territory acute infarct. 2. Hemosiderin deposition from prior petechial hemorrhages seen as detailed above. No evidence of acu te intracranial hemorrhage. 3. Findings consistent with chronic small-vessel ischemic disease and atrophic changes. 4. Paranasal sinus disease as described above.
--- NOTE | 2024-05-27 14:34 | DVHPN2 ---
Progress Note Date Seen: May 27, 2024 Medical Necessity Reason Pt with a Central, PICC or Fol: No Subjective Patient reports: No new complaints Review of Systems: HEENT:Normal, CVS:Normal, RESPIRATORY:Normal, GI:Normal, :Normal, MSK:Normal, NEURO:Normal Objective vital signs Vital Sign Date Time Temp Pulse Resp B/P (MAP) Pulse Ox O2 Delivery O2 Flow Rate FiO2 05/27/24 13:00 79 13 120/73 (89) 97 05/27/24 08:40 Room Air* 0 21 05/27/24 00:45 98.3 Total Intake and Output 05/26/24 05/26/24 05/27/24 15:00 23:00 07:00 Intake Total 570 ml Balance 570 ml medications Current Medications Medications Dose Ordered Sig/Gita Route Start Time Stop Time Status Last Admin Dose Admin Sodium Chloride 1,000 ml @ 60 mls/hr [id number] IV 05/26/24 21:15 05/27/24 04:45 60 MLS/HR Acetaminophen 650 mg Q6HP PRN PO 05/26/24 21:15 Morphine Sulfate 2 mg Q4HPRN PRN IV 05/26/24 21:15 Nitroglycerin 0.4 mg Q5MINP PRN SL 05/26/24 21:15 Morphine Sulfate 2 mg Q30M PRN IV 05/26/24 21:15 Lorazepam 1 mg Q5MINP PRN IV 05/26/24 21:15 Pantoprazole Sodium 40 mg DAILY IV 05/26/24 22:30 05/27/24 10:49 40 MG Thiamine HCl 100 mg DAILY IV 05/27/24 00:15 05/27/24 10:49 100 MG Folic Acid 1 mg/ Dextrose 50.2 ml @ 200.8 mls/ hr DAILY INJ 05/27/24 00:15 05/27/24 11:06 200.8 MLS/HR Piperacillin Sod/ Tazobactam Sod 100 ml @ 25 mls/hr Q6HR IV 05/27/24 00:15 05/27/24 13:07 25 MLS/HR Lorazepam 1 mg ONCE PRN IV 05/27/24 10:15 Examination: GENERAL:Normal, HEENT:Normal, NECK:Normal, LUNGS:Normal, CVS:Normal, ABDOMEN:Normal, MSK:Normal, SKIN:Normal, NEURO:Normal, :Normal laboratory and microbiology Laboratory Tests 05/27/24 10:21 05/27/24 05:32 Test 05/27/24 05:32 Range/Units Serum Glucose 130 H 74-106 mg/dL Microbiology Date/Time Source Procedure Growth Status 05/27/24 05:00 Nose MRSA Screen - Final Complete Problem List/Assessment/Plan Problem List/Assessment/Plan #1 seizure: ? alcohol related #2 alcohol abuse #3 htn #4 thrombocytopenia #5 ? acute cva: per dr Metz #6 liver failure: check usg #7 acute renal failure ?vasomotor nephropathy #8 likely hypothyroidism: check home med advance care planning- full code- time spent 19 mins Plan discussed with: Patient My Orders My Orders Orders - OVIDIO MARISCAL MD Procedure Category Date Status Time LIVER US 05/27/24 Transmitted 14:26 Regular Diet DIET 05/27/24 Transmitted Dinner Urinalysis LAB 05/27/24 Uncollected 14:26 Complete Blood Count LAB 05/28/24 Verified 06:00 Comprehensive LAB 05/28/24 Verified Metabolic Panel 06:00 Date of Service: May 27, 2024 Billing Provider: OVIDIO MARISCAL MD Common Visit Codes: [id number] INP/OBS CARE(HIGH) Secondary Visit Codes: [id number] CARE PLAN 30 MINUTES OVIDIO MARISCAL MD May 27, 2024 14:34
--- NOTE | 2024-05-27 15:15 | DVH ---
ULTRASOUND ABDOMEN LIMITED INDICATION: elevated lft TECHNIQUE: Multiple real-time sonographic images of the abdomen were obtained. COMPARISON: CTA chest 05/27/2024. FINDINGS: The visualized liver parenchyma appears heterogeneous which May relate to hepatocellular disease. . The liver measures 13.9 cm. No discrete hepatic lesion or intrahepatic biliary ductal dilatat ion is identified. There is peritoneal ascites. Gallbladder is surgically absent. The common biliary duct is not adequately seen.. The right kidney measures 6.7 cm length. There is a 1.0 cm right midpole renal cyst. There is no so nographic evidence of nephrolithiasis or hydronephrosis. Pancreas is obscured by bowel gas. IMPRESSION: 1. Liver parenchyma appears heterogeneous which May relate to hepatocellular disease. 2. Ascites. 3. Cholecystectomy. HS:Y
[2024-05-27 18:40] VITALS: BP 94/60; PULSE 74; RESP 19; TEMP 98.1; O2SAT 97
[2024-05-27 20:00] VITALS: PULSE 71; RESP 20; O2SAT 97
[2024-05-27 21:00] VITALS: BP 98/65; PULSE 71; RESP 20; TEMP 98.6; O2SAT 97
[2024-05-27 22:00] VITALS: BP 98/65; PULSE 71; RESP 20; TEMP 98.6; O2SAT 97
[2024-05-28] VITALS (7 sets, daily range): BP systolic 101–115; BP diastolic 60–71; PULSE 59–81; RESP 18–20; TEMP 97.6–98.3; O2SAT 90–97
[2024-05-28 07:03] LABS: Basophils # (auto) 0 10 ^3/uL (0-0.2); Basophils % (auto) 0.3 % (0.0-2.0); Eosinophils # (auto) 0 10 ^3/uL (0-0.8); Eosinophils % (auto) 0.6 % (0.0-7.0); Hematocrit 28.7 % (41.0-53.0); Hemoglobin 9.7 g/dL (13.5-17.5); Lymphocytes # (auto) 1.1 10 ^3/uL (0.4-5.4); Mean Corpuscular Hemoglobin 35.6 pg (28.0-32.0); Mean Corpuscular Hgb Conc. 33.9 g/dL (32.0-36.0); Mean Corpuscular Volume 104.9 fL (80.0-100.0); Monocytes # (auto) 0.6 10 ^3/uL (0-1.3); Monocytes % (auto) 11.5 % (0.0-12.0); Neutrophils # (auto) 3.6 10 ^3/uL (1.6-8.6); Neutrophils % (auto) 66.6 % (37.0-80.0); Platelet Count (auto) 45 10^3/uL (140-450); Red Blood Cells 2.74 10^6/uL (4.5-5.90); White Blood Cell 5.4 10^3/uL (4.4-10.8)
[2024-05-28 07:09] LABS: Alanine Aminotransferase 10 U/L (7-40); Anion Gap 8 (5-15); Aspartate Aminotransferase 36 U/L (13-40); BUN/Creatinine Ratio 9.6 (10.0-20.0); Blood Urea Nitrogen 16 mg/dL (9-23); Calcium 9.2 mg/dL (8.7-10.4); Carbon Dioxide 26 mmol/L (20-31); Chloride 102 mmol/L (98-107); Glucose 106 mg/dL (74-106); Sodium 136 mmol/L (136-145)
[2024-05-28 07:13] LABS: Alkaline Phosphatase 129 U/L (46-116); Bilirubin, Total 1.8 mg/dL (0.2-1.0); Total Protein 5.7 g/dL (5.7-8.2)
--- NOTE | 2024-05-28 12:20 | DVHPN2 ---
Reviewed: Care Plan, H&P, Labs, Medications, Previous Orders, Radiology Changes from previous H/P or p: No Changes General: Per HPI Objective Vitals Vital Signs Date Time Temp Pulse Resp B/P (MAP) Pulse Ox O2 Delivery O2 Flow Rate FiO2 05/28/24 08:57 97.6 69 18 102/66 (78) 95 97.6 05/27/24 20:00 Room Air* 0 21 Intake/Output Intake and Output 05/28/24 07:00 Intake Total 400 ml Output Total 0 ml Balance 400 ml Intake Oral 400 ml Output Urine/Stool Mix 0 ml Medications Current Medications Medications Dose Ordered Sig/Gita Route Start Time Stop Time Status Last Admin Dose Admin Sodium Chloride 1,000 ml @ 60 mls/hr [id number] IV 05/26/24 21:15 05/28/24 06:58 60 MLS/HR Acetaminophen 650 mg Q6HP PRN PO 05/26/24 21:15 Morphine Sulfate 2 mg Q4HPRN PRN IV 05/26/24 21:15 Nitroglycerin 0.4 mg Q5MINP PRN SL 05/26/24 21:15 Morphine Sulfate 2 mg Q30M PRN IV 05/26/24 21:15 Lorazepam 1 mg Q5MINP PRN IV 05/26/24 21:15 Pantoprazole Sodium 40 mg DAILY IV 05/26/24 22:30 05/28/24 10:22 40 MG Thiamine HCl 100 mg DAILY IV 05/27/24 00:15 05/28/24 10:22 100 MG Folic Acid 1 mg/ Dextrose 50.2 ml @ 200.8 mls/ hr DAILY INJ 05/27/24 00:15 05/28/24 11:40 200.8 MLS/HR Piperacillin Sod/ Tazobactam Sod 100 ml @ 25 mls/hr Q6HR IV 05/27/24 00:15 05/28/24 05:20 25 MLS/HR Lorazepam 1 mg ONCE PRN IV 05/27/24 10:15 Laboratory Results Laboratory Tests 05/28/24 06:12 Chemistry Test 05/28/24 06:12 Albumin 3.0 g/dL (3.2-4.8) L Calcium Level 9.2 mg/dL (8.7-10.4) Total Protein 5.7 g/dL (5.7-8.2) LFT Test 05/28/24 06:12 Alanine Aminotransferase (ALT) 10 U/L (7-40) Alkaline Phosphatase 129 U/L (46-116) H Aspartate Amino Transferase (AST) 36 U/L (13-40) Total Bilirubin 1.8 mg/dL (0.2-1.0) H Microbiology Microbiology Date/Time Source Procedure Growth Status 05/27/24 05:00 Nose MRSA Screen - Final Complete Assessment/Plan Assessment/Plan #1 seizure: ? alcohol related #2 alcohol abuse #3 htn #4 thrombocytopenia #5 ? acute cva: per dr Metz #6 liver failure: check usg #7 acute renal failure ?vasomotor nephropathy #8 likely hypothyroidism: check home med advance care planning- full code- time spent 19 mins Plan discussed with: Patient Date of Service: May 28, 2024 Billing Provider: CHEYENNE HAYES DO Common Visit Codes: [id number] INP/OBS CARE(HIGH) CHEYENNE HAYES DO May 28, 2024 12:20
[2024-05-28] MEDS ORDERED: MULT-1018 PO (13:59)
[2024-05-28] MEDS ORDERED: MAGN400T40 PO (13:59)
[2024-05-28] MEDS ORDERED: CALC1TAB92 PO (13:59)
[2024-05-28] MEDS ORDERED: TACR1CAP4 PO (13:59)
[2024-05-28] MEDS ORDERED: TACR0.5C3 PO (13:59)
[2024-05-28] MEDS ORDERED: ACET500T58 PO (13:59)
[2024-05-28] MEDS ORDERED: FERR65TA12 PO (13:59)
[2024-05-28] MEDS ORDERED: ATOR20TA50 PO (13:59)
[2024-05-28] MEDS ORDERED: LEVO-848 PO (13:59)
[2024-05-28] MEDS ORDERED: FAMO-68 PO (13:59)
[2024-05-28] MEDS ORDERED: METO25TA5 PO (13:59)
[2024-05-28] MEDS ORDERED: URSO1TAB7 PO (13:59)
[2024-05-28] MEDS ORDERED: ASPI81CH59 PO (13:59)
[2024-05-28 18:01] LABS: Urine Bacteria None Seen /hpf (None Seen)
[2024-05-28 18:13] LABS: Urine Blood Negative /uL (Negative); Urine Clarity Clear (Clear); Urine Color Yellow (Yellow); Urine Protein, UAD TRACE (Negative); Urine Specific Gravity 1.031 (1.001-1.035); Urine Squamous Epithelial Cell None Seen /hpf (<5); Urine Urobilinogen Normal (Negative); Urine WBC 9 /HPF (0-3); Urine pH 6.5 (5.0-9.0)
[2024-05-28] MEDS: ACETAMINOPHEN 325 MG TAB PO PRN (20:11)
--- NOTE | 2024-05-28 21:25 | DVHPN2 ---
Progress Note - Dictate Date Seen: May 28, 2024 Medical Necessity Reason Pt with a Central, PICC or Fol: No Subjective Mr. Richmond is a 73 years old right-handed gentleman with a history of hypertension, liver failure status post liver transplantation, hypothyroidism, alcohol abuse, the patient was taken to the [facility] on 05/26/2024 with a chief company of seizure activity. I have seen and examined the patient, I have discussed with his nurse, he is doing fine today, alert and fully oriented, and he agreed he was to quit alcohol completely and to compliance to the medical treatment for his liver MRI showed a small stroke, likely incidental fighting Plasma alcohol, 05/26/2024: 3.2 WBC/HB/PLT/MCV, 05/26/2024: 15.4/13.1/90/105.4 PT/INR/PTT, 05/26/2024: 14.6/1.43/31.5 HCO3, 05/26/2024: 16 BUN/CR, 05/27/2024: 9/1.37 Lactic acid, 05/26/2019 5:8.5, 6.1 TBI/AST/ALT/AP, 05/27/2024: 2.2/40/12/153 NH3, 05/26/2024: 65 TSH, 05/26/2024: 8.02 Ultrasound, abdominal, 05/27/2024: 1. Liver parenchyma appears heterogeneous which May relate to hepatocellular disease. 2. Ascites. 3. Cholecystectom CT head, : No acute intracranial abnormality CT, orbits, 05/27/2024: 1. CT orbits within normal limits. 2. Left maxillary sinusitis MR head, 05/27/2024: 1. Tiny foci of restricted diffusion in the right cerebellar hemisphere, suspected sequela of acute or subacute ischemia. No large territory acute infarct. 2. Hemosiderin deposition from prior petechial hemorrhages seen as detailed above. No evidence of acute intracranial hemorrhage. 3. Findings consistent with chronic small-vessel ischemic disease and atrophic changes. 4. Paranasal sinus disease as described above vital signs Vital Sign Date Time Temp Pulse Resp B/P (MAP) Pulse Ox O2 Delivery O2 Flow Rate FiO2 05/28/24 17:00 97.7 78 20 115/71 (86) 93 97.7 05/28/24 08:00 Nasal Cannula* 2 28 Total Intake and Output 05/27/24 05/27/24 05/28/24 15:00 23:00 07:00 Intake Total 400 ml Output Total 0 ml Balance 400 ml medications Current Medications Medications Dose Ordered Sig/Gita Route Start Time Stop Time Status Last Admin Dose Admin Sodium Chloride 1,000 ml @ 60 mls/hr [id number] IV 05/26/24 21:15 05/28/24 06:58 60 MLS/HR Acetaminophen 650 mg Q6HP PRN PO 05/26/24 21:15 05/28/24 20:11 650 MG Morphine Sulfate 2 mg Q4HPRN PRN IV 05/26/24 21:15 Nitroglycerin 0.4 mg Q5MINP PRN SL 05/26/24 21:15 Morphine Sulfate 2 mg Q30M PRN IV 05/26/24 21:15 Lorazepam 1 mg Q5MINP PRN IV 05/26/24 21:15 Pantoprazole Sodium 40 mg DAILY IV 05/26/24 22:30 05/28/24 10:22 40 MG Thiamine HCl 100 mg DAILY IV 05/27/24 00:15 05/28/24 10:22 100 MG Folic Acid 1 mg/ Dextrose 50.2 ml @ 200.8 mls/ hr DAILY INJ 05/27/24 00:15 05/28/24 11:40 200.8 MLS/HR Piperacillin Sod/ Tazobactam Sod 100 ml @ 25 mls/hr Q6HR IV 05/27/24 00:15 05/28/24 12:50 25 MLS/HR Lorazepam 1 mg ONCE PRN IV 05/27/24 10:15 objective General: the patient is well developed and nourished. No acute distress. MENTAL STATUS: Awake and alert. Oriented to person, SPEECH, LANGUAGE, HIGHER CORTICAL FUNCTION: no aphasia or dysathria. CRANIAL NERVES: Pupils are equal, round and reactive. EOMs full and conjugate. No nystagmus. Facial sensation intact in all three divisions bilaterally. Mandibular strength intact. Facial muscles symmetrical and strength intact. SENSATION: Sensation to touch and pinprick is okay MOTOR: Normal tone in the upper and lower extremity. Diffuse muscle atrophy with questionable twitching in the left side (noticed twice, not reproducible). No abnormal movements or posturing. Muscle strength of the major groups in the extremities is 4/5. REFLEXES: Deep tendon reflexes are symmetrical. No pathological reflexes. CEREBELLAR/COORDINATION: Deferred GAIT/STATION: deferred. 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 Seizure activity secondary to alcohol withdrawal Alcoholism Status post liver transplantation Poor compliance to medical treatment Diffuse muscle atrophy Assessment/Plan Monitoring Supportive treatment Telemetry PT, INR, APTT Lipitor profile Echocardiogram Carotid Doppler DVT precautions EEG May consider aspirin if coagulation panel is fine Lipitor 10 mg daily Thiamine supplementation Folic acid supplementation Ativan for seizure breakthrough GI prophylaxis DVT prophylaxis Preventive seizure treatment is not recommended at this time This medical document was created using an electronic medical record system with [employer] dictation system. Although this document has been carefully reviewed, there may still be some phonetic and typographical errors. These areas are purely typographical due to imperfections of the software programs, and do not reflect any compromise in the patient's medical care. Prognosis poor Plan discussed with: Patient, Other Total Time (mins): 35 FIOR BRADFORD MD May 28, 2024 21:25
[2024-05-28] MEDS: ATORVASTATIN 20 MG TAB PO SCH (21:42)
[2024-05-28 22:02] LABS: Triglycerides 78 mg/dL (< 150)
[2024-05-28 22:03] LABS: LDL Cholesterol 26 mg/dL (< 100)
[2024-05-28 22:04] LABS: Cholesterol 59 mg/dL (< 200)
[2024-05-28 22:07] LABS: HDL Cholesterol 23 mg/dL (40-59)
[2024-05-28 22:28] LABS: INR 1.39 (0.9-1.15); Prothrombin Time 14.3 sec (9.3-11.8)
--- NOTE | 2024-05-28 23:32 | DVHEEG2 ---
Neurology EEG Procedural Note Procedural Note EXAM DATE: 05/27/2023 REFERRING DOCTOR: Dr. Bradford TECHNIQUE: Eighteen channels of EEG, 2 channels of EOG, and 1 channel of EKG were recorded using the International 10/20 system. CLINICAL DATA: The patient was referred for an EEG evaluation for the evidence of seizure disorder. MEDICATIONS: See chart BACKGROUND ACTIVITY: While the patient was awake, the background activity consisted of fairly regulated 7 Hz rhythmic waveforms, symmetrically distributed over both posterior quadrants and was reactive to external stimuli, intermixed with this was diffuse low amplitude theta activity over both hemispheres. ACTIVATION: Hyperventilation: Not done Photic Stimulation: Not done Sleep: Stage I and II IMPRESSION: This is a mildly abnormal EEG, this EEG is seen in mild cerebral dysfunction due to metabolic/hypoxic encephalopathy or medication effect, please correlate clinically The EKG channel showed an irregular heart rate of 72/[place] [address] FIOR BRADFORD MD May 28, 2024 23:32
--- NOTE | 2024-05-28 23:40 | DVH ---
Carotid Duplex Clinical History: cva Comparison: None Technique: Duplex Doppler evaluation of the extracranial carotid and vertebral arteries including color Doppler and spectral/pulsed waveform analysis was performed. Findings: RIGHT SIDE: The peak systolic velocities are 75 cm/s in the CCA, 94 cm/s in the ICA. The ICA/CCA ratio is 1.2. The external carotid artery is patent with peak systolic velocity of 60 cm/s proximally. There is appropriate antegrade flow in the right vertebral artery. LEFT SIDE: The peak systolic velocities are 76 cm/s in the CCA, 83 cm/s in the ICA. The ICA/CCA ratio is 1.1. The external carotid artery is patent with peak systolic velocity of 61 cm/s proximally. There is appropriate antegrade flow in the left vertebral artery. IMPRESSION: No evidence of hemodynamically significant stenosis. Reference: Radiology 2003; 229:340-346 Normal ICA PSV is <125 cm/sec and no plaque or intimal thickening is visible sonographically additional criteria include ICA/CCA PSV ratio <2.0 and ICA EDV <40 cm/sec <50% ICA stenosis ICA PSV is <125 cm/sec and plaque or intimal thickening is visible sonographically additional criteria include ICA/CCA PSV ratio <2.0 and ICA EDV <40 cm/sec 50-69% ICA stenosis ICA PSV is 125-230 cm/sec and plaque is visible sonographically additional criteria include ICA/CCA PSV ratio of 2.0-4.0 and ICA EDV of 40-100 cm/sec 70% ICA stenosis but less than near occlusion ICA PSV is >230 cm/sec and visible plaque and luminal narrowing are seen at adamson-scale and color Dopp ler ultrasound (the higher the Doppler parameters lie above the threshold of 230 cm/sec, the greater the likelihood of severe disease) additional criteria include ICA/CCA PSV ratio >4 and ICA EDV >100 cm/sec
[2024-05-29] VITALS (9 sets, daily range): BP systolic 106–138; BP diastolic 64–85; PULSE 68–86; RESP 17–21; TEMP 97.5–98.7; O2SAT 94–99
--- NOTE | 2024-05-29 11:54 | DVHSR ---
APPROVED REPORT EXAM: LIMITED Two-dimensional and M-mode echocardiogram with Doppler and color Doppler. Blood Pressure: 106/71 mmHg INDICATION cva+ bubble RISK FACTORS Height: 5'8, Weight: 136 DIMENSIONS EF (%) 55.0 (55-70%)Rt. Atrium (1.9-4.0cm)Asc. Aorta cm Mitral Valve MitralMitral Stenosis E wave0.89m/sMV Mean GR.mmHg A wave1.01m/sMV Peak GR.57mmHg E/A ratio0.92D MVAcm2 DECEL [id number] 1/2 Timems Aortic Valve Aortic ValveAortic Stenosis V10.84m/Joelle Mean GR.4mmHg V21.33m/Joelle Peak GR.7mmHg Other Information Quality : Technically LimitedRhythm : Technically limited study due to body habitus.patient position. Conclusion lvef 55% by visual etimate very limited study, poor image quality calcified aortic valve, cannot make any assessment on it however
--- NOTE | 2024-05-29 19:18 | DVHPN2 ---
Reviewed: Care Plan, H&P, Labs, Medications, Previous Orders, Radiology Changes from previous H/P or p: No Changes General: Per HPI Objective Vitals Vital Signs Date Time Temp Pulse Resp B/P (MAP) Pulse Ox O2 Delivery O2 Flow Rate FiO2 05/29/24 17:00 98.5 68 18 132/85 (101) 98 98.5 05/29/24 08:07 Room Air* 0 21 Intake/Output Intake and Output 05/29/24 07:00 Intake Total 1000.2 ml Output Total 1400 ml Balance -399.8 ml Intake Oral 850 ml IV Total 150.2 ml Output Urine Total 1400 ml Medications Current Medications Medications Dose Ordered Sig/Gita Route Start Time Stop Time Status Last Admin Dose Admin Sodium Chloride 1,000 ml @ 60 mls/hr [id number] IV 05/26/24 21:15 05/29/24 17:41 60 MLS/HR Acetaminophen 650 mg Q6HP PRN PO 05/26/24 21:15 05/29/24 17:40 650 MG Morphine Sulfate 2 mg Q4HPRN PRN IV 05/26/24 21:15 Nitroglycerin 0.4 mg Q5MINP PRN SL 05/26/24 21:15 Morphine Sulfate 2 mg Q30M PRN IV 05/26/24 21:15 Lorazepam 1 mg Q5MINP PRN IV 05/26/24 21:15 Pantoprazole Sodium 40 mg DAILY IV 05/26/24 22:30 05/29/24 09:50 40 MG Thiamine HCl 100 mg DAILY IV 05/27/24 00:15 05/29/24 09:49 100 MG Folic Acid 1 mg/ Dextrose 50.2 ml @ 200.8 mls/ hr DAILY INJ 05/27/24 00:15 05/29/24 09:48 200.8 MLS/HR Piperacillin Sod/ Tazobactam Sod 100 ml @ 25 mls/hr Q6HR IV 05/27/24 00:15 05/29/24 17:41 25 MLS/HR Lorazepam 1 mg ONCE PRN IV 05/27/24 10:15 Atorvastatin Calcium 10 mg HS PO 05/28/24 22:00 05/28/24 21:42 10 MG Laboratory Results Laboratory Tests 05/28/24 06:12 Coagulation Test 05/28/24 21:35 Prothrombin Time 14.3 sec (9.3-11.8) H Prothrombin Time INR 1.39 (0.9-1.15) H Lipid panel Test 05/28/24 21:35 Cholesterol Level 59 mg/dL (< 200) HDL Cholesterol 23 mg/dL (40-59) L Triglycerides Level 78 mg/dL (< 150) Urinalysis Test 05/28/24 18:00 Urine Color Yellow (Yellow) Urine Clarity Clear (Clear) Urine pH 6.5 (5.0-9.0) Urine Specific Harvey 1.031 (1.001-1.035) Urine Protein Trace (Negative) H Urine Ketones Negative (Negative) Urine Blood Negative /uL (Negative) Urine Nitrite Negative (Negative) Urine Bilirubin Negative (Negative) Urine Urobilinogen Normal mg/dL (Negative) Urine Leukocyte Esterase Trace /uL (Negative) Urine RBC 1 /hpf (0 - 3) Urine Microscopic WBC 9 /HPF (0-3) H Urine Squamous Epithelial Cells None seen /hpf (<5) Urine Bacteria None seen /hpf (None Seen) Urine Glucose Normal mg/dL (Normal) Microbiology Microbiology Date/Time Source Procedure Growth Status 05/28/24 18:00 Voided Urine Urine Culture - Preliminary Resulted 05/28/24 16:40 Blood Blood Culture - Preliminary NO GROWTH AFTER 24 HOURS OF INCUBATION. Resulted 05/27/24 05:00 Nose MRSA Screen - Final Complete Assessment/Plan Assessment/Plan #1 seizure: ? alcohol related #2 alcohol abuse #3 htn #4 thrombocytopenia #5 ? acute cva: per dr Metz #6 liver failure: check usg #7 acute renal failure ?vasomotor nephropathy #8 likely hypothyroidism: check home med advance care planning- full code- time spent 19 mins Plan discussed with: Patient Date of Service: May 29, 2024 Billing Provider: CHEYENNE HAYES DO Common Visit Codes: [id number] INP/OBS CARE(HIGH) CHEYENNE HAYES DO May 29, 2024 19:18
--- NOTE | 2024-05-29 23:28 | DVHPN2 ---
Progress Note - Dictate Date Seen: May 29, 2024 Medical Necessity Reason Pt with a Central, PICC or Fol: No Subjective Mr. Richmond is a 73 years old right-handed gentleman with a history of hypertension, liver failure status post liver transplantation, hypothyroidism, alcohol abuse, the patient was taken to the [facility] on 05/26/2024 with a chief company of seizure activity. I have seen and examined the patient, I have discussed with his nurse, he was not doing well, awake, responds to verbal stimuli, follows my verbal commands a little bit, talkative little bit, he may only oriented to himself, he moves the left arm than leg less than the other side, he may prefer left gazing Plasma alcohol, 05/26/2024: 3.2 WBC/HB/PLT/MCV, 05/26/2024: 15.4/13.1/90/105.4 PT/INR/PTT, 05/26/2024: 14.6/1.43/31.5, 05/28/2024: 14.3/1.39/ HCO3, 05/26/2024: 16 BUN/CR, 05/27/2024: 9/1.37 Lactic acid, 05/26/2019 5:8.5, 6.1 TBI/AST/ALT/AP, 05/27/2024: 2.2/40/12/153, 05/28/2024: 70 8/59/26/23 NH3, 05/26/2024: 65 TSH, 05/26/2024: 8.02 TTE, 05/29/2024: lvef 55% by visual etimate very limited study, poor image quality calcified aortic valve, cannot make any assessment on it however lvef 55% by visual etimate very limited study, poor image quality calcified aortic valve, cannot make any assessment on it however Carotid Doppler, 05/28/2024: No evidence of hemodynamically significant stenosis. Ultrasound, abdominal, 05/27/2024: 1. Liver parenchyma appears heterogeneous which May relate to hepatocellular disease. 2. Ascites. 3. Cholecystectom CT head, : No acute intracranial abnormality CT, orbits, 05/27/2024: 1. CT orbits within normal limits. 2. Left maxillary sinusitis MR head, 05/27/2024: 1. Tiny foci of restricted diffusion in the right cerebellar hemisphere, suspected sequela of acute or subacute ischemia. No large territory acute infarct. 2. Hemosiderin deposition from prior petechial hemorrhages seen as detailed above. No evidence of acute intracranial hemorrhage. 3. Findings consistent with chronic small-vessel ischemic disease and atrophic changes. 4. Paranasal sinus disease as described above vital signs Vital Sign Date Time Temp Pulse Resp B/P (MAP) Pulse Ox O2 Delivery O2 Flow Rate FiO2 05/29/24 21:00 98.3 70 18 129/82 (98) 95 98.3 05/29/24 20:00 Room Air* 0 21 Total Intake and Output 05/28/24 05/28/24 05/29/24 15:00 23:00 07:00 Intake Total 50.2 ml 950 ml 0 ml Output Total 600 ml 800 ml Balance 50.2 ml 350 ml -800 ml medications Current Medications Medications Dose Ordered Sig/Gita Route Start Time Stop Time Status Last Admin Dose Admin Sodium Chloride 1,000 ml @ 60 mls/hr [id number] IV 05/26/24 21:15 05/29/24 17:41 60 MLS/HR Acetaminophen 650 mg Q6HP PRN PO 05/26/24 21:15 05/29/24 17:40 650 MG Morphine Sulfate 2 mg Q4HPRN PRN IV 05/26/24 21:15 Nitroglycerin 0.4 mg Q5MINP PRN SL 05/26/24 21:15 Morphine Sulfate 2 mg Q30M PRN IV 05/26/24 21:15 Lorazepam 1 mg Q5MINP PRN IV 05/26/24 21:15 Pantoprazole Sodium 40 mg DAILY IV 05/26/24 22:30 05/29/24 09:50 40 MG Thiamine HCl 100 mg DAILY IV 05/27/24 00:15 05/29/24 09:49 100 MG Folic Acid 1 mg/ Dextrose 50.2 ml @ 200.8 mls/ hr DAILY INJ 05/27/24 00:15 05/29/24 09:48 200.8 MLS/HR Piperacillin Sod/ Tazobactam Sod 100 ml @ 25 mls/hr Q6HR IV 05/27/24 00:15 05/29/24 17:41 25 MLS/HR Lorazepam 1 mg ONCE PRN IV 05/27/24 10:15 Atorvastatin Calcium 10 mg HS PO 05/28/24 22:00 05/29/24 21:53 10 MG objective General: the patient is well developed and nourished. No acute distress. MENTAL STATUS: Subjective SPEECH, LANGUAGE, HIGHER CORTICAL FUNCTION: no aphasia or dysathria. CRANIAL NERVES: Pupils are equal, round and reactive. EOMs full and conjugate. No nystagmus. Facial sensation intact in all three divisions bilaterally. Mandibular strength intact. Facial muscles symmetrical and strength intact. SENSATION: Sensation to touch and pinprick is okay MOTOR: Normal tone in the upper and lower extremity. Diffuse muscle atrophy with questionable twitching in the left side (noticed twice, not reproducible). No abnormal movements or posturing. He moves the arms and legs, less on the left side REFLEXES: Deep tendon reflexes are symmetrical. No pathological reflexes. CEREBELLAR/COORDINATION: Deferred GAIT/STATION: deferred. laboratory and microbiology Laboratory Tests 05/28/24 06:12 Test 05/28/24 06:12 Range/Units Serum Glucose 106 74-106 mg/dL Problem List New mental status change on 05/29/2024 ? Recurrent stroke ? Seizure ? Delirium tremor. 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 Although this document has been carefully reviewed, there may still be some phonetic and typographical errors. These areas are purely typographical due to imperfections of the software programs, and do not reflect any compromise in the patient's medical care. Prognosis poor Plan discussed with: Other Total Time (mins): 40 FIOR BRADFORD MD May 29, 2024 23:28
[2024-05-30] VITALS (29 sets, daily range): BP systolic 81–215; BP diastolic 22–75; PULSE 58–104; RESP 14–27; TEMP 91.4–98.9; O2SAT 92–100
[2024-05-30] MEDS ORDERED: LORazepam 2MG/ML-1ML VIAL IV PRN (00:15)
--- NOTE | 2024-05-30 03:02 | DVH ---
Critical Findings Examination: HWOCT CLINICAL INDICATION:CVA COMPARISON: None. CONTRAST USED: None. TECHNIQUE: The examination was performed obtaining 5 mm slices without contrast. CT scan done accor ding to ALARA (As Low as Reasonably Achievable). Multiplanar reconstructions were obtained. FINDINGS: SUPRATENTORIAL BRAIN: Cerebral Hemispheres: Prominence of subarachnoid CSF spaces and bilateral lateral ventricles is noted . There is no midline shift or mass effect, intra or extra-axial fluid collections or hemorrhage. Periventricular White Matter/Basal Ganglia: No abnormal areas of altered attenuation within the basal ganglia. Chronic periventricular small vessel white matter ischemic changes are noted along bilater al cerebral hemispheres. POSTERIOR FOSSA: A 24 x 18 x 10 mm hemorrhage is noted in the posterior half of radha with intraventri cular extension of bleed in the fourth ventricle and subarachnoid extension of the bleed in the quadr igeminal cistern. VENTRICULAR SYSTEM: The ventricular system is normal in size. There is no evidence of hydrocephalus o r transependymal flow of cerebrospinal fluid. SKULL BASE AND PARASELLAR REGION: The skull base is normal with no parasellar masses or abnormalities identified. CALVARIUM AND SCALP REGION: No abnormality is seen. PARANASAL SINUSES: Mucosal hypertrophy is noted along bilateral cerebral hemispheres. IMPRESSION: 1. Acute pontine hemorrhage with intraventricular and subarachnoid extension as described, likely hy pertensive hemorrhage. 2. Age-related cerebral atrophy. 3. Chronic periventricular small vessel white matter ischemic changes. Electronically Signed 05/30/2024 04:46 Juan Pablo Gamino
--- NOTE | 2024-05-30 04:08 | BSKYNEURO ---
[facility] Note # Demographics Consult Type: Acute Stroke Level 1 (0-4.5 hrs) Patient Location: Inpatient First Name: LEN Last Name: ROMARIO Date of : 1950 Age: 73 Gender: Male Facility: [facility] Time of Initial Page (): 05/30/2024 03:55 Time of Return Call (): 05/30/2024 03:56 # HPI History: Here for ETOh withdrawal then found to have acute worse mental status. Last Known Normal: 2099 pst 05/29 # Scores Time of exam and NIHSS (): 05/30/2024 04:03 Level of Consciousness 1a: [3] = Responds only with reflex motor or unresponsive LOC Questions 1b: [2] = Answers neither correctly LOC Commands 1c: [2] = Performs neither correctly Best Gaze 2: [0] = Normal Visual 3: [0] = No visual loss Facial Palsy 4: [3] = Complete paralysis Motor Arm Left 5a: [3] = No effort against gravity Motor Arm Right 5b: [2] = Some effort against gravity Motor Leg Left 6a: [3] = No effort against gravity Motor Leg Right 6b: [2] = Some effort against gravity Limb Ataxia 7: [0] = Absent Sensory 8: [0] = Normal Best Language 9: [3] = Mute Dysarthria 10: [2] = Severe dysarthria Extinction and Inattention 11: [0] = No abnormality NIHSS Total: 25 # Exam SBP: 130s # Data Head CT: - per radiologist read CTH showing Acute intraparenchymal hemorrhage in the right of the radha as described above. intraventricular extension into the 4th ventricle and right perimesencephalic cistern. Mild extension along the right tentorial leaflet is noted. # Assessment Impression: - Intracerebral hemorrhage May not be protecting airway. Asked RN to call for doctors to assess for intuba tion. # Plan Thrombolytic/Intervention: NOT IV Thrombolysis or IA Intervention candidate Thrombolytic Exclusion (< 3 hour window): - ICH Thrombolytic Exclusion (3-4.5 hour window): - ICH Target Blood Pressure: SBP < 140 Imaging: (urgency: STAT): - CT Angiogram Head and CT Angiogram Neck AND call back with results if abnormal Hemorrhage Reversal: ddavp 0.4mcg/kg iv x 1 to help with platelet impairment 2/2 etoh use. Other: - If patient has any neurological deterioration please call me back immediately - consult neurosurgery Disposition: transfer to ICU # Logistics Attestation of consult completion: The patient is located at: [facility]. Facility staff participated in the visit. I performed this telemedicine visit from my offsite office utilizing interactive 2 way audio and visual telecommunication technology. Total time spent in telemedicine encounter: I spent 12 minutes reviewing clinical data and/or imaging, obtaining history, examining the patient, communicating with the onsite care team, and in preparation of this report. Critical Care time: 12 minutes of this encounter were critical care time. Due to a high probability of clinically significant, life-threatening neurologic deterioration, the patient required my highest level of preparedness to intervene emergently. I spent this critical care time managing the patient in conjunction with on-site providers who requested my consultation. In addition to the above, this critical care time included recommendation and review of studies, including imaging; arranging an urgent treatment and management plan with on-site providers; evaluation of patient's response to treatment; and documentation. This critical care time was performed to assess and manage the high probability of imminent, life-threatening deterioration that could result in neurologic catastrophe. # Demographics First Name: LEN Last Name: ROMARIO Facility: [facility] Electronically signed at 05/30/2024 04:08 ([place] Time) by Nitin Joya MD Yes MARLEEN JOYA MD May 30, 2024 04:08
[2024-05-30] MEDS: DESMOPRESSIN ACET 4 MCG/1 ML AMPULE ONE (04:44)
[2024-05-30] MEDS: DESMOPRESSIN INJECTION 20 MCG in SODIUM CHL 0.9% 50 ML IV ONE (05:00)
[2024-05-30] MEDS: SUCCINYLCHOLINE CHLORIDE 20 MG/ML 10ML VIAL IV ONE ×2 (05:14→05:20)
[2024-05-30] MEDS: ETOMIDATE (2MG/ML) 20ML VIAL IV ONE ×2 (05:14→05:20)
[2024-05-30] MEDS: MIDAZOLAM DRIP 50 mg/50mL 50 ML IV ONE (05:21)
[2024-05-30] MEDS: MIDAZOLAM DRIP 50 mg/50mL 50 ML IV SCH (05:39)
--- NOTE | 2024-05-30 05:44 | DVH ---
CHEST RADIOGRAPH Indication: Status post intubation Technique: Single frontal view of the chest was obtained Comparison: XY CHEST XRAY 1 VIEW on DOS: 05/26/24, XY CHEST PORTABLE on DOS: 08/15/23 IMPRESSION: Endotracheal tube tip is approximately 3 cm from the yo. The heart appears normal in size with T AVR device. No sizable effusion or focal airspace opacity. Mild pulmonary vascular congestion.
[2024-05-30] MEDS: hydrALAZINE HCL 20 MG/ML VL IV PRN (05:50)
[2024-05-30] MEDS ORDERED: hydrALAZINE HCL 20 MG/ML VL IV PRN (06:00)
[2024-05-30 06:30] LABS: Base Excess -6.7 mmol/L (-2.0-3.0)
[2024-05-30 08:57] LABS: Base Excess -5.9 mmol/L (-2.0-3.0)
[2024-05-30] MEDS: SODIUM CHLORIDE 0.9% 1,000 ML IV ONE (10:32)
[2024-05-30] MEDS ORDERED: NOREPINEPHRINE 8 MG/250ML KIT 250 ML IV ONE (11:37)
--- NOTE | 2024-05-30 22:18 | DVHDS2 ---
Discharge Summary Date of Admission May 26, 2024 at 21:15 Date of Discharge: May 30, 2024 Labs/Diagnostic Data: Laboratory Results Test 05/30/24 08:25 05/30/24 01:58 05/28/24 21:35 05/28/24 18:00 Blood Gas Specimen Type Arterial Blood Gas Sample Site Right radial Blood Gas Patient Temperature 37.0 Arterial Blood Date Drawn [id number] Arterial Blood pH 7.474 (7.350-7.450) Arterial Blood Partial Pressure CO2 22.5 mmHg (35.0-48.0) Arterial Blood Partial Pressure O2 110.9 mmHg (83.0-108.0) Arterial Blood HCO3 16.2 mmol/L (21.0-28.0) Arterial Blood Oxygen Saturation 98.0 % (94.0-98.0) Arterial Blood Base Excess -5.9 mmol/L (-2.0-3.0) Arterial Blood Oxyhemoglobin 96.5 % (94.0-98.0) Arterial Blood Carboxyhemoglobin 0.9 % (0.5-1.5) Arterial Blood Methemoglobin 0.6 % (0.0-1.5) Gautam Test Modified Blood Gas Total Hemoglobin 10.50 g/dL (13.5-17.5) Blood Gas Set Respiration Rate 16.0 Blood Gas Modality Vent - ac Blood Gas Spontaneous Rate 22 FiO2 % 30.0 Blood Gas Tidal Volume 450.0 Blood Gas PEEP or CPAP 5.0 POC Glucose 95 mg/dl (70-106) Prothrombin Time 14.3 sec (9.3-11.8) Prothrombin Time INR 1.39 (0.9-1.15) Triglycerides Level 78 mg/dL (< 150) Cholesterol Level 59 mg/dL (< 200) LDL Cholesterol 26 mg/dL (< 100) HDL Cholesterol 23 mg/dL (40-59) Urine Color Yellow (Yellow) Urine Clarity Clear (Clear) Urine pH 6.5 (5.0-9.0) Urine Specific [place] 1.031 (1.001-1.035) Urine Protein Trace (Negative) Urine Ketones Negative (Negative) Urine Blood Negative /uL (Negative) Urine Nitrite Negative (Negative) Urine Bilirubin Negative (Negative) Urine Urobilinogen Normal mg/dL (Negative) Urine Leukocyte Esterase Trace /uL (Negative) Urine RBC 1 /hpf (0 - 3) Urine Microscopic WBC 9 /HPF (0-3) Urine Squamous Epithelial Cells None seen /hpf (<5) Urine Bacteria None seen /hpf (None Seen) Urine Glucose Normal mg/dL (Normal) Test 05/28/24 06:12 05/27/24 05:00 05/26/24 23:13 05/26/24 21:24 White Blood Count 5.4 10^3/uL (4.4-10.8) Red Blood Count 2.74 10^6/uL (4.5-5.90) Hemoglobin 9.7 g/dL (13.5-17.5) Hematocrit 28.7 % (41.0-53.0) Mean Corpuscular Volume 104.9 fL (80.0-100.0) Mean Corpuscular Hemoglobin 35.6 pg (28.0-32.0) Mean Corpuscular Hemoglobin Concent 33.9 g/dL (32.0-36.0) Red Cell Distribution Width 16.0 % (11.8-14.3) Platelet Count 45 10^3/uL (140-450) Mean Platelet Volume 7.3 fL (6.9-10.8) Neutrophils (%) (Auto) 66.6 % (37.0-80.0) Lymphocytes (%) (Auto) 21.0 % (10.0-50.0) Monocytes (%) (Auto) 11.5 % (0.0-12.0) Eosinophils (%) (Auto) 0.6 % (0.0-7.0) Basophils (%) (Auto) 0.3 % (0.0-2.0) Neutrophils # (Auto) 3.6 10 ^3/uL (1.6-8.6) Lymphocytes # (Auto) 1.1 10 ^3/uL (0.4-5.4) Monocytes # (Auto) 0.6 10 ^3/uL (0-1.3) Eosinophils # (Auto) 0 10 ^3/uL (0-0.8) Basophils # (Auto) 0 10 ^3/uL (0-0.2) Nucleated Red Blood Cells 0.0 % Sodium Level 136 mmol/L (136-145) Potassium Level 3.0 mmol/L (3.5-5.1) Chloride Level 102 mmol/L (98-107) Carbon Dioxide Level 26 mmol/L (20-31) Anion Gap 8 (5-15) Blood Urea Nitrogen 16 mg/dL (9-23) Creatinine 1.67 mg/dL (0.700-1.30) Glomerular Filtration Rate Calc 43 mL/min (>90) BUN/Creatinine Ratio 9.6 (10.0-20.0) Serum Glucose 106 mg/dL (74-106) Calcium Level 9.2 mg/dL (8.7-10.4) Total Bilirubin 1.8 mg/dL (0.2-1.0) Aspartate Amino Transferase (AST) 36 U/L (13-40) Alanine Aminotransferase (ALT) 10 U/L (7-40) Alkaline Phosphatase 129 U/L (46-116) Total Protein 5.7 g/dL (5.7-8.2) Albumin 3.0 g/dL (3.2-4.8) Influenza Type A Antigen Negative (Negative) Influenza Type B Antigen Negative (Negative) SARS-CoV-2 Antigen (Rapid) Negative (NEGATIVE) Lactic Acid Level 6.1 mmol/L (0.4-2.0) Activated Partial Thromboplast Time 31.5 SEC (24.5-34.5) D-Dimer, Quantitative 9.10 mg/L FEU (0.0-0.49) Hemoglobin A1c 4.3 % A1C (<5.7) Magnesium Level 1.8 mg/dL (1.6-2.6) Ammonia 65 umol/L (11-32) Troponin I High Sensitivity 8 ng/L (</=54) Thyroid Stimulating Hormone (TSH) 8.02 uIU/mL (0.55-4.78) Free Thyroxine (T4) Calculated 1.21 ng/dL (0.89-1.76) Plasma/Serum Blood Alcohol 3.2 mg/dL (<10) Other Laboratory Tests 05/28/24 06:12 Brief Hx & Hospital Course: #1 seizure: ? alcohol related #2 alcohol abuse #3 htn #4 thrombocytopenia #5 ? acute cva: per dr Metz #6 liver failure: check usg #7 acute renal failure ?vasomotor nephropathy #8 likely hypothyroidism: check home med advance care planning- full code- time spent 19 mins transferred to [facility] at Discharge: Good Final Diagnosis/Problems List see above Discharge Disposition: Home Discharge Statement: "Patient was advised to return to the ER or call 911 if any headaches, dizziness, shortness of breath, chest pain, abdominal pain, bleeding, fevers, or worsening of medical condition. Patient was counseled about treatment plan, medications, possible side effects, patientverbalized understanding. All questions were answered to the best of my ability. This discharge took greater then 30 minutes in planning, reviewing documentation, counseling the patient, and discussing with other team members." ASSESSMENT ASSESSMENT Assessment Date of Service: May 30, 2024 Billing Provider: CHEYENNE HAYES DO Common Visit Codes: 03891-GYD/OBS DISCH DAY >30min CHEYENNE HAYES DO May 30, 2024 22:18
== END 2024-05-30 11:22 | disposition short-term general hospital (02) | DRG 64 ==
LOC: ER 19:38 → EDBD 19:38 → OVERFLOW 21:15 → TELE-WESTW 05-27 18:45 → ICU CENTRL 05-30 06:45
PROVIDERS: ADMIT Internal Medicine; ATTEND Internal Medicine
PROC: 0BH17EZ Insertion of Endotracheal Airway into Trachea, Via Natural or Artificial Opening (ICD-10-PCS; principal; 2024-05-30)
PROC: 5A1935Z Respiratory Ventilation, Less than 24 Consecutive Hours (ICD-10-PCS; 2024-05-30)
DX: I63.9 Cerebral infarction, unspecified (principal); G93.41 Metabolic encephalopathy; N17.0 Acute kidney failure with tubular necrosis; J69.0 Pneumonitis due to inhalation of food and vomit; R65.11 Systemic inflammatory response syndrome (SIRS) of non-infectious origin with acute organ dysfunction; E87.20 Acidosis, unspecified; Z94.4 Liver transplant status; F10.230 Alcohol dependence with withdrawal, uncomplicated; G40.401 Other generalized epilepsy and epileptic syndromes, not intractable, with status epilepticus; Z20.822 Contact with and (suspected) exposure to COVID-19; E86.0 Dehydration; D69.6 Thrombocytopenia, unspecified; I10 Essential (primary) hypertension; D53.9 Nutritional anemia, unspecified; E03.9 Hypothyroidism, unspecified; M62.58 Muscle wasting and atrophy, not elsewhere classified, other site; F17.200 Nicotine dependence, unspecified, uncomplicated; Z83.3 Family history of diabetes mellitus; K72.90 Hepatic failure, unspecified without coma; Z86.73 Personal history of transient ischemic attack (TIA), and cerebral infarction without residual deficits; Z79.899 Other long term (current) drug therapy; Y90.0 Blood alcohol level of less than 20 mg/100 ml
CPT/HCPCS: 36415; 36600; 70450; 70480; 70551; 71045; 71275; 76705; 80053; 80061; 80320; 81001; 82140; 82805; 82962; 83036; 83605; 83735; 84439; 84443; 84484; 85025; 85379; 85610; 85730; 87040; 87070; 87077; 87081; 87086; 87186; 87205; 87426; 87804; 93306; 93886; 94002; 95819; 96374; G0378; J0330; J2003; J2470; J2543; J7060